=== PATIENT | male | born 1955 | race Caucasian/White ===

== ENCOUNTER 2016-09-05 14:32 | Emergency (ER) | payer OTHER ==
[~2016-09-05] VITALS: Ht 180.3 cm; Wt 125.0 kg
[~2016-09-05 14:32] MED LIST: AMLO5TAB2 PO; CALC600T25; CHLO25TA2 PO; CIAL5TAB PO; CLON0.2T PO; D 10CHW; DICL1GEL7 TOPICAL; EDAR80TA PO; FENT1SUB2; GABA300C5 PO; HYDR50TA15 PO; IBUP800T23 PO; LANTINJ SQ; LETR2.5T PO; LUPR3.75 IM; MEDI220T PO; METF1000 PO; METO100T PO; NOVOINJ3 SQ; ONDA4TAB7 SL; OXYC1TAB63 PO; POTA99TA; ROSU20 PO; TETA1INJ6 IM; TIZA2CAP3 PO; TRAM50TA PO; TRIAM.1%T TOPICAL; VICT18IN SQ; ZOME4INJ IV
[2016-09-05 14:33] VITALS: BP 161/85; PULSE 110; RESP 16; TEMP 101.4; O2SAT 94
[2016-09-05 14:55] VITALS: BP 173/83; PULSE 107; RESP 18; TEMP 101.8; O2SAT 95
[2016-09-05 15:00] VITALS: O2SAT 100
[2016-09-05] MEDS ORDERED: SODIUM CHLOR 0.9% 1000 ML INJ 1,000 ML IV ONE (15:00)
[2016-09-05] MEDS ORDERED: KETOROLAC TROMETHAMINE 30 MG/ML (IVP) VIAL IV PUSH ONE (15:00)
[2016-09-05] MEDS ORDERED: ACETAMINOPHEN 325 MG TAB PO ONE (15:00)
[2016-09-05] MEDS ORDERED: SODIUM CHLORIDE 0.9% FLUSH 10 ML FLUSH IVF PRN (15:00)
--- NOTE | 2016-09-05 15:35 | RADHPO ---
EXAM DATE/TIME: 09/05/2016 15:11 [facility] COMPARISON: No previous studies available for comparison. INDICATIONS : Fever. MEDICAL HISTORY : Carcinoma, breast. SURGICAL HISTORY : Mastectomy, right. [place]ort ENCOUNTER: Initial ACUITY: 4 - 6 days PAIN SCORE: 4/10 LOCATION: Bilateral chest FINDINGS: [id number] in good position. Lungs are clear. Heart and pulmonary vascularity normal. Portion o f bony skeleton visualized unremarkable. CONCLUSION: [id number] in good position otherwise negative. Paul Moreno MD FACR on September 05, 2016 at 15:28 Board Certified Radiologist. This report was verified electronically.
[2016-09-05 15:41] LABS: AUTOMATED NEUTROPHIL # 4.3 TH/MM3 (1.8-7.7); BASOPHIL # 0.1 TH/MM3 (0-0.2); BASOPHIL % 2.1 % (0.0-2.0); EOSINOPHIL % 0.2 % (0.0-4.0); HEMATOCRIT 39.4 % (39.0-51.0); LYMPHOCYTE # 0.3 TH/MM3 (1.0-4.8); MEAN CELL VOLUME 93.7 FL (80.0-100.0); MEAN CORPUSCULAR HEMOGLOBIN 31.4 PG (27.0-34.0); MEAN CORPUSCULAR HGB CONC 33.5 % (32.0-36.0); NEUT % 80.7 % (16.0-70.0); PLATELET COUNT 129 TH/MM3 (150-450); RED CELL DISTRIBUTION WIDTH 13.2 % (11.6-17.2); WHITE BLOOD COUNT 5.3 TH/MM3 (4.0-11.0)
[2016-09-05 15:44] LABS: HEMO FLAGS AUTO DIFF
--- NOTE | 2016-09-05 15:58 | PD ---
HPI Chief Complaint: GI Complaint Time Seen by Provider: 14:50 Travel History International Travel<30 days: Yes Contact w/Intl Traveler<30days: Yes Name of Country Traveled to: [facility] Traveled to known affect area: No History of Present Illness HPI Patient is a 61-year-old male presents the emergency department with complaint of fever, nausea and vomiting. Patient just returned from a cruise to the [facility]. States that while on the cruise he became ill with body aches, fevers and chills, nausea and vomiting. His symptoms have not gotten any better since being home prompting ER visit. He states that the cough is primarily nonproductive, occasionally clears phlegm but no hemoptysis. He has nausea and vomiting but no hematemesis or abdominal pain. No diarrhea. In fact patient has chronic constipation due to opioid usage. Unclear whether he had any sick contacts, but certainly did have travel as above. PFSH Past Medical History Hx Anticoagulant Therapy: No Cancer: Yes (BREAST CA WITH METS TO BONE) Cardiovascular Problems: Yes (htn on meds) Diabetes: Yes Patient Takes Glucophage: Yes Respiratory: Yes (cpap) Tetanus Vaccination: < 5 Years Influenza Vaccination: No Past Surgical History Surgical History: No Previous Surgery Social History Alcohol Use: Yes Tobacco Use: No Substance Use: No Allergies-Medications (Allergen,Severity, Reaction): Coded Allergies: No Known Allergies (Unverified , 09/05/16) Reported Meds & Prescriptions Reported Meds & Active Scripts Active Ondansetron Odt 4 Mg Tab 4 Mg SL Q6HR PRN Metformin (Metformin HCl) 1,000 Mg Tab 1,000 Mg PO BIDPC With meals Amlodipine (Amlodipine Besylate) 5 Mg Tab 5 Mg PO DAILY Cialis (Tadalafil) 5 Mg Tab 5 Mg PO DAILY Do not exceed 1 dose/day. Reported Tizanidine (Tizanidine HCl) 2 Mg Cap 2 Mg PO TID Crestor (Rosuvastatin Calcium) 20 Mg Tab 20 Mg PO DAILY Lupron Depot Inj Kit (Leuprolide Acetate) 3.75 Mg Kit 3.75 Mg IM MONTHLY Zometa Inj (Zoledronic Acid) 4 Mg/100 Ml Inj 4 Mg IV [id number] Abstral (Fentanyl Citrate) 200 Mcg Tab Oxycodone-Acetaminophen 5-325 mg Tab 1 Tab PO Q6H PRN Tramadol (Tramadol HCl) 50 Mg Tab 100 Mg PO Q4H PRN Potassium 99 Mg Tab 595 Naproxen Sodium 220 Mg Tab 220 Mg PO BID PRN Metoprolol Tartrate 100 Mg Tab 100 Mg PO BID Victoza Inj (Liraglutide Inj) 18 Mg/3 Ml Pen 1.8 Mg SQ DAILY Letrozole 2.5 Mg Tab 2.5 Mg Lantus Solostar Pen Inj (Insulin Glargine) 300 Unit/3 Ml Pen 45 Units SQ BID Novolog Flexpen Inj (Insulin Aspart) 300 Unit/3 Ml Pen 1 Units SQ Ibuprofen 800 Mg Tab 800 Mg PO Q8H PRN Hydralazine (Hydralazine HCl) 50 Mg Tab 50 Mg PO BID Take with a meal Gabapentin 300 Mg Cap 300 Mg PO TID Diclofenac Topical 1% Gel 1 Applic TOPICAL QID Clonidine (Clonidine HCl) 0.2 Mg Tab 0.2 Mg PO BID D 1000 (Cholecalciferol) 1,000 Unit Chew 1,000 Chlorthalidone 25 Mg Tab 25 Mg PO DAILY Calcium (Calcium Carbonate) 600 Mg Tab 600 Edarbi (Azilsartan) 80 Mg Tab 80 Mg PO DAILY Triamcinolone Topical (Triamcinolone Acetonide) 0.1 % Oint 1 Applic TOPICAL BID Review of Systems Except as stated in HPI: all other systems reviewed are Neg Physical Exam Narrative GENERAL: Well-appearing male in no acute distress SKIN: Focused skin assessment warm/dry. HEAD: Normocephalic. EYES: No scleral icterus. No injection or drainage. ENT: Mucous membranes pink and moist. Copious clear nasal discharge. NECK: Supple without nuchal rigidity CARDIOVASCULAR: Mildly tachycardic with heart rate in the 100. No murmur appreciated. RESPIRATORY: No accessory muscle use. Clear to auscultation. Breath sounds equal bilaterally. GASTROINTESTINAL: Abdomen soft, non-tender, nondistended. Obese MUSCULOSKELETAL: No obvious deformities. No edema. NEUROLOGICAL: Awake and alert. Motor grossly within normal limits. Normal speech. PSYCHIATRIC: Appropriate mood and affect; insight and judgment normal. Data Data Last Documented VS Vital Signs Date Time Temp Pulse Resp B/P Pulse Ox O2 Delivery O2 Flow Rate FiO2 09/05/16 15:00 100 Room Air 09/05/16 14:55 101.8 107 18 173/83 Orders Electrocardiogram (09/05/16 14:54) Complete Blood Count With Diff (09/05/16 14:54) Lactic Acid Sepsis Protocol (09/05/16 14:54) Influenzae A/B Antigen (09/05/16 14:54) Blood Culture (09/05/16 14:54) Chest, Single Ap (09/05/16 14:54) Ecg Monitoring (09/05/16 14:54) Iv Access Insert/Monitor (09/05/16 14:54) Oximetry (09/05/16 14:54) Acetaminophen (Tylenol) (09/05/16 15:00) Basic Metabolic Panel (Bmp) (09/05/16 14:54) Sodium Chlor 0.9% 1000 Ml Inj (Ns 1000 M (09/05/16 15:00) Ketorolac Inj (Toradol Inj) (09/05/16 15:00) Heparin Central Flush (Heparin Central F (09/05/16 15:00) Sodium Chloride 0.9% Flush (Ns Flush) (09/05/16 15:00) Heparin Central Flush (Heparin Central F (09/05/16 15:00) Ondansetron Inj (Zofran Inj) (09/05/16 16:00) Labs Laboratory Tests Test 09/05/16 15:20 White Blood Count 5.3 TH/MM3 Red Blood Count 4.20 MIL/MM3 Hemoglobin 13.2 GM/DL Hematocrit 39.4 % Mean Corpuscular Volume 93.7 FL Mean Corpuscular Hemoglobin 31.4 PG Mean Corpuscular Hemoglobin 33.5 % Concent Red Cell Distribution Width 13.2 % Platelet Count 129 TH/MM3 Mean Platelet Volume 8.1 FL Neutrophils (%) (Auto) 80.7 % Lymphocytes (%) (Auto) 5.0 % Monocytes (%) (Auto) 12.0 % Eosinophils (%) (Auto) 0.2 % Basophils (%) (Auto) 2.1 % Neutrophils # (Auto) 4.3 TH/MM3 Lymphocytes # (Auto) 0.3 TH/MM3 Monocytes # (Auto) 0.6 TH/MM3 Eosinophils # (Auto) 0.0 TH/MM3 Basophils # (Auto) 0.1 TH/MM3 CBC Comment AUTO DIFF MDM Medical Decision Making Medical Screen Exam Complete: Yes Emergency Medical Condition: Yes Medical Record Reviewed: Yes Differential Diagnosis 61-year-old male here with complaint of flulike symptoms, subjective fevers and chills, nausea vomiting, cough and chest congestion area differential includes influenza, viral syndrome, pneumonia, pancreatitis or hepatobiliary pathology, dehydration, electrolyte abnormality. Narrative Course Patient placed on monitor, port accessed and blood obtained. Twelve-lead EKG shows sinus tachycardia, rate [address] abnormalities and normal intervals. Patient given IV fluids, Tylenol, Toradol and Zofran. Portable chest x-ray obtained that by my read shows no acute abnormalities. Influenza test was positive. Patient is outside the window for treatment. CBC, BMP, lactate, blood cultures were obtained and are pending at the time this dictation. Patient signed out to oncoming provider waiting results of same for hopeful disposition home. Diagnosis Primary Impression: Influenza A Additional Impression: Vomiting Qualified Code: R11.10 - Vomiting, intractability of vomiting not specified, presence of nausea not specified, unspecified vomiting type Mylene Hatch MD Sep 05, 2016 15:58
[2016-09-05] MEDS ORDERED: ONDANSETRON HCL 4 MG/2 ML VIAL IV PUSH ONE (16:00)
[2016-09-05 16:05] LABS: POTASSIUM 3.5 MEQ/L (3.5-5.1)
[2016-09-05 16:11] LABS: BICARBONATE 26.5 MEQ/L (21.0-32.0)
[2016-09-05 16:24] LABS: PLATELET ESTIMATE SMEAR LOW (NORMAL); PLATELET MORPHOLOGY NORMAL (NORMAL); SCAN/DIFF AUTO DIFF CONFIRMED
[2016-09-05 16:27] VITALS: BP 163/74; PULSE 94; RESP 18; O2SAT 95
[2016-09-05] MEDS ORDERED: ZOFR4TAB3 SL (16:36)
[2016-09-05 16:41] VITALS: TEMP 100.4
--- NOTE | 2016-09-07 21:34 | EKG ---
Date Performed: 09/05/2016 Time Performed: 15:09:44 PTAGE: 61 years EKG: Sinus tachycardia Possible left anterior fascicular block Possible septal infarct - age und etermined Abnormal ECG NO PREVIOUS TRACING DOCTOR: Jamar Bansal Interpretating Date/Time 09/07/2016 21:30:46
== END 2016-09-05 17:02 | disposition home or self-care (01) ==
LOC: PHED 14:32
DX: J09.X9 Influenza due to identified novel influenza A virus with other manifestations (principal); E11.9 Type 2 diabetes mellitus without complications; Z79.4 Long term (current) use of insulin
CPT/HCPCS: 71010; 80048; 83605; 85025; 87040; 87804; 93005; 96361; 96374; 96375; 99284; J1642; J1885; J2405; J7030

== ENCOUNTER 2017-02-23 18:05 | Emergency (ER) | payer OTHER ==
[~2017-02-23] VITALS: Ht 177.8 cm; Wt 117.0 kg
[~2017-02-23 18:05] MED LIST changes: -CALC600T25; -CIAL5TAB PO; -D 10CHW; -FENT1SUB2; +HYDR-3799 PO; -HYDR50TA15 PO; -IBUP800T23 PO; -LANTINJ SQ; -MEDI220T PO; -ONDA4TAB7 SL; -POTA99TA; -TETA1INJ6 IM; -TRAM50TA PO; -TRIAM.1%T TOPICAL; +ZOFR4TAB3 SL
[2017-02-23 18:06] VITALS: BP 158/80; PULSE 88; RESP 24; TEMP 97.7; O2SAT 98
[2017-02-23] MEDS ORDERED: ONDANSETRON ODT 4 MG TAB PO ONE (19:45)
[2017-02-23] MEDS ORDERED: HYDROmorphone HCL PF 1 MG/ML VIAL IM ONE (19:45)
--- NOTE | 2017-02-23 19:46 | PD ---
HPI Chief Complaint: Musculoskeletal Complaint Time Seen by Provider: 19:32 Travel History International Travel<30 days: No Contact w/Intl Traveler<30days: No Traveled to known affect area: No History of Present Illness HPI 61-year-old white male right-hand dominant presents emergency department with complaints of right shoulder pain. 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 The medial after he had been not been able to raise his arm out laterally or out in front of them. He denies any numbness or tingling. No pain in his elbow, wrist or hand. Patient states that he has a history of metastatic breast cancer with metastases to the bone and is currently in remission. He is followed by Dr. Rodriguez. [facility] Past Medical History Narrative Medical Metastatic breast cancer with metastases to the bones currently in remission, hypertension, diabetes, neuropathy, hypercholesterolemia, arthritis GERD, BPH Hx Anticoagulant Therapy: No Cancer: Yes (BREAST CA WITH METS TO BONE) Cardiovascular Problems: Yes (htn on meds) Diabetes: Yes Patient Takes Glucophage: Yes Diminished Hearing: No Hypertension: Yes Respiratory: Yes (cpap) Tetanus Vaccination: < 5 Years Past Surgical History Narrative Surgical Right mastectomy Social History Alcohol Use: Yes Tobacco Use: No Substance Use: No Allergies-Medications (Allergen,Severity, Reaction): Coded Allergies: No Known Allergies (Unverified , 02/23/17) Reported Meds & Prescriptions Reported Meds & Active Scripts Active Zofran Odt (Ondansetron Odt) 4 Mg Tab 4 Mg SL Q8HR PRN Metformin (Metformin HCl) 1,000 Mg Tab 1,000 Mg PO BIDPC With meals Amlodipine (Amlodipine Besylate) 5 Mg Tab 5 Mg PO DAILY Reported Hydralazine HCl 25 Mg Tablet 25 Mg PO BID Tizanidine (Tizanidine HCl) 2 Mg Cap 2 Mg PO TID Crestor (Rosuvastatin Calcium) 20 Mg Tab 20 Mg PO DAILY Lupron Depot Inj Kit (Leuprolide Acetate) 3.75 Mg Kit 3.75 Mg IM MONTHLY Zometa Inj (Zoledronic Acid) 4 Mg/100 Ml Inj 4 Mg IV [id number] Oxycodone-Acetaminophen 5-325 mg Tab 1 Tab PO Q6H PRN Metoprolol Tartrate 100 Mg Tab 100 Mg PO BID Victoza Inj (Liraglutide Inj) 18 Mg/3 Ml Pen 1.8 Mg SQ DAILY Letrozole 2.5 Mg Tab 2.5 Mg PO DAILY Novolog Flexpen Inj (Insulin Aspart) 300 Unit/3 Ml Pen 1 Units SQ Gabapentin 300 Mg Cap 300 Mg PO TID Diclofenac Topical 1% Gel 1 Applic TOPICAL QID Clonidine (Clonidine HCl) 0.2 Mg Tab 0.2 Mg PO BID Chlorthalidone 25 Mg Tab 25 Mg PO DAILY Edarbi (Azilsartan) 80 Mg Tab 80 Mg PO DAILY Review of Systems Except as stated in HPI: all other systems reviewed are Neg Physical Exam Narrative GENERAL: Well-developed, well-nourished in no acute distress. Nontoxic appearing. HEAD: Normocephalic, atraumatic. EYES: Pupils equal round and reactive. Extraocular motions intact. No scleral icterus. No injection or drainage. ENT: TMs clear without erythema. The external auditory canals clear. Nose: clear . Posterior pharynx is pink and moist. No tonsillar edema or exudate. Uvula midline. Airway patent. NECK: Trachea midline.Supple, nontender, moves head freely. No central bony tenderness or spasm. CARDIOVASCULAR: Regular rate and rhythm without murmurs, gallops, or rubs. RESPIRATORY: Clear to auscultation. Breath sounds equal bilaterally. No wheezes , rales, or rhonchi. GASTROINTESTINAL: Abdomen soft, non-tender, nondistended. No hepato-splenomegaly , or palpable masses. No guarding. EXTREMITIES: No clubbing, cyanosis, or edema. Examination of the right upper extremity reveals pain in the glenohumeral joint. No joint effusion. He has significant decreased range of motion. He has positive drop test. No pain in the clavicle, elbow, wrist or hand. He has intact median/ulnar/renal nerves. Good pulses. The left upper extremity as well as lower extremity is without localizing bony tenderness or deformity. BACK: Nontender without deformity or crepitance. No flank tenderness. Data Data Last Documented VS Vital Signs Date Time Temp Pulse Resp B/P (MAP) Pulse Ox O2 Delivery O2 Flow Rate FiO2 02/23/17 18:06 97.7 88 24 158/80 (106) 98 Room Air Orders Orders Hydromorphone Pf Inj (Dilaudid Pf Inj) (02/23/17 19:45) Ondansetron Odt (Zofran Odt) (02/23/17 19:45) Shoulder, Complete (>2vws) (02/23/17 19:38) Ice/Cold Pack (02/23/17 19:38) Splint Or Brace Apply/Monitor (02/23/17 19:38) MDM Medical Decision Making Medical Screen Exam Complete: Yes Emergency Medical Condition: Yes Medical Record Reviewed: Yes Interpretation(s) Right shoulder: Negative for acute fracture. Differential Diagnosis MDM: High Differential diagnoses: Fracture, sprain, strain, dislocation, contusion, neurovascular injury Narrative Course Patient's history and exam is concerning for rotator cuff tear. X-ray of the right shoulder is negative for acute bony injury. Patient is given a ice pack, sling. He is encouraged to follow-up with his doctor for recheck and MRI of the shoulder. Diagnosis Primary Impression: Injury of right rotator cuff Qualified Codes: S46.001A - Unspecified injury of muscle(s) and tendon(s) of the rotator cuff of right shoulder, initial encounter Patient Instructions: Narcotic given in the ED, General Instructions Additional Instructions: Rest. Sling. Ice pack for the next 2-3 days. Continue to take your oxycodone at home for pain. Contact your doctor in the morning to schedule a follow-up exam and possible MRI of the shoulder. Return to the ER for emergencies. Med/Other Pt SpecificInfo: Prescription(s) given Disposition: 01 DISCHARGE HOME Condition: Stable José Raman Feb 23, 2017 19:46
--- NOTE | 2017-02-23 20:21 | RADRPT ---
EXAM DATE/TIME: 02/23/2017 19:56 [facility] COMPARISON: No previous studies available for comparison. INDICATIONS : Right shoulder pain after picking up logs. MEDICAL HISTORY : Right arm pit lymph node removal. SURGICAL HISTORY : None. ENCOUNTER: Initial ACUITY: 1 day PAIN SCORE: 10/10 LOCATION: Right posterior shoulder. FINDINGS: Degenerative changes are noted involving the right acromioclavicular and glenohumeral joints. There is no acute fracture or dislocation of the right shoulder. Right axillary node dissection is noted. CONCLUSION: 1. No acute fracture or dislocation of the right shoulder. 2. Degenerative changes involving the right acromioclavicular and glenohumeral joints. Thor Vieira MD on February 23, 2017 at 20:14 Board Certified Radiologist. This report was verified electronically.
[2017-03-04] MEDS ORDERED: METF1000 PO (09:16)
[2017-03-04] MEDS ORDERED: METO100T PO (09:16)
== END 2017-02-23 20:46 | disposition home or self-care (01) ==
LOC: NEPD 18:05
DX: S46.001A Unspecified injury of muscle(s) and tendon(s) of the rotator cuff of right shoulder, initial encounter (principal); I10 Essential (primary) hypertension; E11.9 Type 2 diabetes mellitus without complications; Z79.84 Long term (current) use of oral hypoglycemic drugs; Z85.3 Personal history of malignant neoplasm of breast; Z86.79 Personal history of other diseases of the circulatory system; Z87.09 Personal history of other diseases of the respiratory system; X58.XXXA Exposure to other specified factors, initial encounter; Y92.238 Other place in hospital as the place of occurrence of the external cause; Y99.0 Civilian activity done for income or pay
CPT/HCPCS: 73030; 96372; 99284; J1170

== ENCOUNTER → 2017-06-23 | Outpatient (CLI) | payer OTHER ==
[2017-06-23 09:32] LABS: AUTOMATED NEUTROPHIL # 3.2 TH/MM3 (1.8-7.7); BASOPHIL # 0.1 TH/MM3 (0-0.2); BASOPHIL % 1.5 % (0.0-2.0); EOSINOPHIL # 0.2 TH/MM3 (0-0.4); EOSINOPHIL % 3.5 % (0.0-4.0); HEMATOCRIT 38.6 % (39.0-51.0); HEMO FLAGS DIFF FINAL; HEMOGLOBIN 13.4 GM/DL (13.0-17.0); LYMPH % 32.7 % (9.0-44.0); MEAN CELL VOLUME 93.6 FL (80.0-100.0); MEAN CORPUSCULAR HEMOGLOBIN 32.4 PG (27.0-34.0); MEAN CORPUSCULAR HGB CONC 34.6 % (32.0-36.0); MEAN PLATELET VOLUME 9.1 FL (7.0-11.0); MONOCYTE # 0.5 TH/MM3 (0-0.9); NEUT % 53.3 % (16.0-70.0); PLATELET COUNT 141 TH/MM3 (150-450); RED BLOOD COUNT 4.13 MIL/MM3 (4.50-5.90); RED CELL DISTRIBUTION WIDTH 13.6 % (11.6-17.2)
[2017-06-23 09:37] LABS: APTT (PATIENT) 26.8 SEC (24.3-30.1)
[2017-06-23 09:53] LABS: ANION GAP 7 MEQ/L (5-15); BICARBONATE 30.2 MEQ/L (21.0-32.0); BLOOD UREA NITROGEN 19 MG/DL (7-18); CALCIUM 8.9 MG/DL (8.5-10.1); CHLORIDE 104 MEQ/L (98-107); GLOMERULAR FILTRATION RATE 85 ML/MIN (>89); GLUCOSE,FASTING 125 MG/DL (74-99); POTASSIUM 3.2 MEQ/L (3.5-5.1); SODIUM (NA) 141 MEQ/L (136-145)
[2017-06-23 10:45] LABS: MRSA PCR NEGATIVE (NEGATIVE); STAPH AUREUS PCR NEGATIVE (NEGATIVE)
== END ==
LOC: CPRE 08:10
DX: Z01.812 Encounter for preprocedural laboratory examination (principal); Z01.811 Encounter for preprocedural respiratory examination; Z01.810 Encounter for preprocedural cardiovascular examination; M50.00 Cervical disc disorder with myelopathy, unspecified cervical region; I10 Essential (primary) hypertension; E11.9 Type 2 diabetes mellitus without complications; E78.5 Hyperlipidemia, unspecified; G62.9 Polyneuropathy, unspecified; Z85.3 Personal history of malignant neoplasm of breast
CPT/HCPCS: 36415; 71046; 80048; 85025; 85610; 85730; 87640; 87641; 93005

== ENCOUNTER 2017-06-30 06:12 | Observation (INO) | payer OTHER ==
[~2017-06-30] VITALS: Ht 179.1 cm; Wt 120.6 kg
[~2017-06-30 06:12] MED LIST changes: +OXYC1TAB36 PO; -OXYC1TAB63 PO; +PANT40TA3 PO
[2017-06-30] MEDS ORDERED: SODIUM CHLORID 0.9% 500 ML IV PRN (06:45)
[2017-06-30] MEDS ORDERED: METOPROLOL TARTRATE 25 MG TAB PO PRN (06:45)
[2017-06-30] MEDS ORDERED: ceFAZolin 2 GM PREMIX 50 ML IV SCH (06:45)
[2017-06-30] MEDS ORDERED: CHLORHEXIDINE GLUCONATE 2 % 1 PACK (2 CLOTHS) TOPICAL PRN (06:45)
[2017-06-30] MEDS ORDERED: POVIDONE IODINE 5% (ANTISEPSIS KIT) 4 APPLICATIONS EACH NARE PRN (06:45)
[2017-06-30] MEDS ORDERED: LACTATED RINGER'S 1000 ML IV PRN (06:45)
[2017-06-30] MEDS ORDERED: EZET10 PO (06:58)
[2017-06-30] MEDS ORDERED: CANA300T PO (06:58)
[2017-06-30] MEDS ORDERED: TAMS0.4C4 PO (06:58)
[2017-06-30] MEDS ORDERED: POTA-163 PO (06:58)
[2017-06-30] MEDS ORDERED: ACETAMINOPHEN 1000 MG/100 ML 100 ML IV ONE (08:59)
[2017-06-30] MEDS ORDERED: PROPOFOL 500 MG/50 ML INJ 100 ML ONE (08:59)
[2017-06-30] MEDS ORDERED: GENTAMICIN SULFATE 80 MG/2 ML VIAL ONE (09:00)
[2017-06-30] MEDS ORDERED: GELFOAM SIZE 100 ONE (09:00)
[2017-06-30] MEDS ORDERED: LIDOCAINE 2%/EPINEPHrine PF 1:200,000 20ML SDV ONE (09:01)
[2017-06-30] MEDS ORDERED: THROMBIN (TOPICAL) 5,000 UNIT VIAL ONE (09:01)
[2017-06-30] MEDS ORDERED: MIDAZOLAM HCL 2 MG/2 ML VIAL ONE (09:14)
[2017-06-30] MEDS ORDERED: FAMOTIDINE 20 MG/2 ML VIAL ONE (09:14)
[2017-06-30] MEDS ORDERED: PROPOFOL 500 MG/50 ML INJ 200 ML ONE (11:02)
[2017-06-30] MEDS ORDERED: HYDROmorphone HCL PF 2 MG/ML VIAL ONE (11:03)
[2017-06-30] MEDS ORDERED: DEXAMETHASONE SOD PHOS 4 MG/ML VIAL IV ONE (12:00)
[2017-06-30] MEDS ORDERED: LACTATED RINGER'S 1000 ML INJ 1,000 ML IV ONE (12:00)
[2017-06-30] MEDS ORDERED: ROCURONIUM INJ 50 MG/5 ML SYRINGE IV PUSH ONE (12:00)
[2017-06-30] MEDS ORDERED: LIDOCAINE HCL 1% PF 5 ML SYRINGE OTHER ONE (12:00)
[2017-06-30] MEDS ORDERED: ONDANSETRON HCL 4 MG/2 ML VIAL IV ONE (12:00)
[2017-06-30] MEDS ORDERED: NORMOSOL R INJ 1,000 ML IV ONE (12:00)
[2017-06-30] MEDS ORDERED: GLYCOPYRROLATE 1 MG/5 ML SYRINGE IV PUSH ONE (12:00)
[2017-06-30] MEDS ORDERED: PROPOFOL 200 MG/20 ML AMP IV ONE (12:00)
[2017-06-30] MEDS ORDERED: NEOSTIGMINE 5 MG/5 ML SYRINGE IV PUSH ONE (12:00)
[2017-06-30] MEDS ORDERED: DO NOT ADM ANY ANTICOAGULANT DRUGS PRN (13:28)
[2017-06-30] MEDS ORDERED: GLUCAGON 1 MG/ML VIAL OTHER PRN ×2 (13:45→15:00)
[2017-06-30] MEDS ORDERED: DEXTROSE 50% IN WATER 50 ML VIAL(D50) IV PUSH PRN ×2 (13:45→15:00)
--- NOTE | 2017-06-30 13:51 | PD.OP ---
Operative Report Date of Surgery: Jun 30, 2017 Preoperative Diagnosis: (1) HNP (herniated nucleus pulposus), cervical (2) Cervical disc disease with myelopathy C4-5 herniated nucleus pulposis with severe spinal cord compression Cervical myelopathy Postoperative Diagnosis: (1) HNP (herniated nucleus pulposus), cervical (2) Cervical disc disease with myelopathy C4-5 herniated nucleus pulposis with severe spinal cord compression Cervical myelopathy Procedure: 1. C4-5 anterior cervical discectomy, resection sequestered herniated nucleus pulposis 2. C4 5 artificial disc placement ( Mobi- C) Anesthesia: Gen. Surgeon: Wilton Rizvi Gaming Pit Boss(s): Chiquita Fairbanks Operation and Findings: Findings: Very large sequestered disc herniation with fragments posterior to the annulus and also posterior to the posterior longitudinal ligament with significant adhesion to the thecal sac. Procedure in detail: The patient was brought into the operating room and positioned in supine position on the 3080 table with the head and neck in neutral position. Servin catheter was placed. Lines were established by Anesthesia. Gen. endotracheal anesthesia was induced without difficulty, taking care not to significantly flex or extend the patient's neck during intubation and positioning. Leads for intraoperative neuro monitoring were placed and a baseline study obtained. All extremities were appropriately padded. The neck and upper chest were shaved with clippers and sterilely prepped and draped. Appropriate timeout procedure was performed with all personnel present and in agreement 1% Xylocaine with epinephrine was used for local infiltration over the incision site which was made transversely at the left C4-5 level and carried sharply down through the platysma muscle. The exposure was continued medial to the sternocleidomastoid muscle and carotid artery, and lateral to the trachea and esophagus. The prevertebral fascia was elevated away from the anterior longitudinal ligament with a Kitner sponge. The longus coli muscle on each side was elevated with the Merritt elevator. The self-retaining retractor was placed with the blades beneath the longus coli muscle on each side. The appropriate levels were confirmed with intraoperative C-arm and preoperative imaging studies. The microscope was brought into place and used for the remainder of the procedure including the closure. The 14 mm distraction pins were used as needed for gentle distraction during the procedure. The procedure was performed at the C4-5 level. The anterior osteophyte was resected with the Leksell rongeur. The disc and annulus was incised with a 15 blade knife and discectomy performed with pituitary biopsy forceps and straight and angled curettes. The endplates were thoroughly cleaned with a curette. The TPS drill with the 4 mm barrel bur was used to remove the posterior margin of the vertebral body to remove any osteophytes and allow adequate access to the anterior spinal canal. The thin ligament dissector was used to free up the posterior annulus and ligament from the vertebral body margin. The remainder of the resection of the posterior annulus and ligament as well as the posterior osteophyte and bilateral uncovertebral joint as needed was performed with the 2 and 3 mm thin footplate Kerrison rongeurs. A large herniated nucleus pulposus was encountered posterior to the annulus with a further tear in the posterior longitudinal ligament with additional large fragments of herniated disc material directly on the dura. The fragments of herniated disc were freed up with the thin ligament dissector and the micro- blunt nerve hook and lifted away from the thecal sac and removed. The appropriate size Mobi- C implant was then chosen using the trial. The 15 mm wide by 6 mm high implant was chosen. Using anatomic landmarks, and AP and lateral C-arm imaging, the appropriate size Mobi- C then placed with a good fit of the implant. The blunt nerve hook was used to probe beneath the implant to ensure that there was no impingement on the thecal sac or exiting nerve roots. The entire construct was checked with intraoperative C-arm and felt to be satisfactory. The 10 Estonian drain was brought out through a small incision in the left lower neck and secured to the skin with nylon suture and attached to sterile suction. The closure was performed with 3-0 Vicryl running for the platysma and interrupted for the subcutaneous closure, with 4-0 Vicryl running for the subcuticular closure. A dressing of sterile Mastisol, Steri-Strips, and Primapore dressing was placed. The patient was taken to recovery room in stable condition. All counts were correct at the end of the case. Estimated blood loss was 30 cc No specimen was sent to pathology. Intraoperative neuro monitoring remained stable during the procedure. Wilton Rizvi MD Jun 30, 2017 13:51
--- NOTE | 2017-06-30 14:11 | RADRPT ---
EXAM DATE/TIME: 06/30/2017 09:56 [facility] COMPARISON: No previous studies available for comparison. INDICATIONS : Post-op C4-C5 artificial disk placement. MEDICAL HISTORY : None. SURGICAL HISTORY : None. ENCOUNTER: Initial ACUITY: 1 day PAIN SCORE: Non-responsive. LOCATION: neck FINDINGS: 2 fluoroscopic images of the cervical spine. There is a well-positioned disc prosthesis at C4-5. Visu alized osseous structures are intact without acute fracture. The visualized sagittal alignment is morgan ntained. Patient is intubated with left IJ central line. CONCLUSION: 1. Disc prosthesis at C4-5, as above. Julio Cesar Rene MD on June 30, 2017 at 14:08 Board Certified Radiologist. This report was verified electronically.
[2017-06-30 14:50] LABS: BICARBONATE 18.5 MEQ/L (21.0-32.0); CALCIUM 8.3 MG/DL (8.5-10.1); CREATININE 0.9 MG/DL (0.60-1.30)
[2017-06-30] MEDS ORDERED: MORPHINE SULFATE 2 MG/ML INJ IV PUSH PRN (15:00)
[2017-06-30] MEDS ORDERED: oxyCODONE/ACETAMINOPHEN 5 MG/325 MG TAB PO PRN (15:00)
[2017-06-30] MEDS: 1/2 NS + KCL 20 MEQ INJ 1,000 ML IV SCH ×2 (15:00→16:16)
[2017-06-30] MEDS ORDERED: NALOXONE HCL 0.4 MG/ML AMP IV PUSH PRN (15:00)
[2017-06-30] MEDS ORDERED: INSULIN ASPART 1,000 UNITS/10 ML VIAL SQ ONE (15:08)
[2017-06-30 15:30] VITALS: BP 142/79; PULSE 81; RESP 18; TEMP 96.9; O2SAT 95
[2017-06-30] MEDS: INSULIN ASPART SUPPLEMENTAL SCALE SQ SCH ×2 (17:00→21:00)
[2017-06-30] MEDS: GABAPENTIN 300 MG CAP PO SCH (17:05)
[2017-06-30] MEDS: metFORMIN HCL 500 MG TAB PO SCH (17:05)
[2017-06-30] MEDS: oxyCODONE/ACETAMINOPHEN 10 MG/325 MG TAB PO PRN (18:07)
[2017-06-30] MEDS ORDERED: PILL SPLITTER OTHER PRN (19:00)
[2017-06-30] MEDS ORDERED: LEUPROLIDE 3.75 MG IM PRN (19:00)
[2017-06-30] MEDS ORDERED: ZOLEDRONIC ACID 4 MG IV PRN (19:15)
[2017-06-30 20:05] VITALS: O2SAT 96
[2017-06-30 20:35] VITALS: BP 135/83; PULSE 91; RESP 17; TEMP 99.3; O2SAT 94
[2017-06-30] MEDS: hydrALAZINE HCL 25 MG TAB PO SCH (20:41)
[2017-06-30] MEDS: cloNIDine HCL 0.2 MG TAB PO SCH (20:41)
[2017-06-30] MEDS: METOPROLOL TARTRATE 100 MG TAB PO SCH (20:42)
[2017-06-30] MEDS ORDERED: DICLOFENAC TOPICAL SCH (21:00)
[2017-06-30] MEDS ORDERED: TAMSULOSIN HCL 0.4 MG CAP PO SCH (21:00)
[2017-06-30] MEDS ORDERED: PANTOPRAZOLE SOD 40 MG DELAYED RELEASE TAB PO SCH (21:00)
[2017-07-01 00:40] VITALS: BP 126/75; PULSE 76; RESP 18; TEMP 98.2; O2SAT 93
[2017-07-01 03:00] VITALS: BP 134/73; PULSE 74; RESP 18; TEMP 97.9; O2SAT 94
[2017-07-01 05:30] LABS: AUTOMATED NEUTROPHIL # 6.6 TH/MM3 (1.8-7.7); BASOPHIL % 0.4 % (0.0-2.0); EOSINOPHIL % 0.5 % (0.0-4.0); HEMATOCRIT 39.5 % (39.0-51.0); HEMOGLOBIN 13.6 GM/DL (13.0-17.0); LYMPH % 13.4 % (9.0-44.0); LYMPHOCYTE # 1.2 TH/MM3 (1.0-4.8); MEAN CELL VOLUME 93.4 FL (80.0-100.0); MEAN CORPUSCULAR HEMOGLOBIN 32.1 PG (27.0-34.0); MEAN CORPUSCULAR HGB CONC 34.4 % (32.0-36.0); MEAN PLATELET VOLUME 8.8 FL (7.0-11.0); MONO % 11.2 % (0.0-8.0); NEUT % 74.5 % (16.0-70.0); PLATELET COUNT 141 TH/MM3 (150-450); RED BLOOD COUNT 4.23 MIL/MM3 (4.50-5.90); WHITE BLOOD COUNT 8.9 TH/MM3 (4.0-11.0)
[2017-07-01 05:55] LABS: BICARBONATE 28.6 MEQ/L (21.0-32.0); CALCIUM 8.6 MG/DL (8.5-10.1); CREATININE 0.85 MG/DL (0.60-1.30)
[2017-07-01] MEDS: oxyCODONE/ACETAMINOPHEN 10 MG/325 MG TAB PO PRN (07:34)
[2017-07-01 08:00] VITALS: BP 142/77; PULSE 72; RESP 16; TEMP 96.7; O2SAT 96
[2017-07-01 08:19] VITALS: O2SAT 93
[2017-07-01] MEDS: hydrALAZINE HCL 25 MG TAB PO SCH (08:19)
[2017-07-01] MEDS: metFORMIN HCL 500 MG TAB PO SCH (08:20)
[2017-07-01] MEDS: METOPROLOL TARTRATE 100 MG TAB PO SCH (08:20)
[2017-07-01] MEDS: GABAPENTIN 300 MG CAP PO SCH ×2 (08:20→13:02)
[2017-07-01] MEDS: cloNIDine HCL 0.2 MG TAB PO SCH (08:20)
[2017-07-01] MEDS ORDERED: PRED10 PO (08:25)
[2017-07-01] MEDS ORDERED: PRED5TAB PO (08:27)
[2017-07-01] MEDS ORDERED: PRED2.5T PO (08:27)
[2017-07-01] MEDS ORDERED: amLODIPine BESYLATE 5 MG TAB PO SCH (09:00)
[2017-07-01] MEDS ORDERED: LIRAGLUTIDE 1.8 MG SQ SCH (09:00)
[2017-07-01] MEDS ORDERED: POTASSIUM CHLORIDE 20 MEQ CONTROLLED RELEASE TAB PO SCH (09:00)
[2017-07-01] MEDS ORDERED: EZETIMIBE 10 MG TAB PO SCH (09:00)
[2017-07-01] MEDS ORDERED: Letrozole 2.5 MG PO SCH (09:00)
[2017-07-01] MEDS ORDERED: CHLORTHALIDONE 50 MG TAB PO SCH (09:00)
[2017-07-01] MEDS ORDERED: OXYC1TAB36 PO (09:24)
[2017-07-01] MEDS: INSULIN ASPART SUPPLEMENTAL SCALE SQ SCH ×2 (09:54→13:02)
[2017-07-01] MEDS: 1/2 NS + KCL 20 MEQ INJ 1,000 ML IV SCH (11:30)
[2017-07-01 12:00] VITALS: BP 121/72; PULSE 66; RESP 16; TEMP 96.8; O2SAT 96
--- NOTE | 2017-07-01 14:16 | HHI.DCPOC ---
Discharge Care Plan Diagnosis: (1) Cervical disc disease with myelopathy Your Health Problems Are: Incision/Drains Loss of Movements Goals to Promote Your Health * To prevent worsening of your condition and complications * To maintain your health at the optimal level Wear the cervical collar at all times. It may briefly be taken off for personal hygiene. No lifting, bending, pushing, pulling or other strenuous activity. Leave the dressing on over the surgical incisions for 1 week. After that you may take the outer dressing off but leave the steri-strips on. If the steri- strips do not fall off by day 10 then you may gently remove them. No showering until the surgical incision is totally healed. Take the pain medication as prescribed. Avoid taking any medication that contains aspirin or NSAIDs (ibuprofen, naproxen , Motrin, Advil, Naprosyn) for at least a month. Follow up in the office in 2 weeks for a wound check. Directions to Meet Your Goals Take your medications as prescribed Follow your dietary instruction Follow activity as directed Wear the cervical collar at all times. It may briefly be taken off for personal hygiene. No lifting, bending, pushing, pulling or other strenuous activity. Leave the dressing on over the surgical incisions for 1 week. After that you may take the outer dressing off but leave the steri-strips on. If the steri- strips do not fall off by day 10 then you may gently remove them. No showering until the surgical incision is totally healed. Take the pain medication as prescribed. Avoid taking any medication that contains aspirin or NSAIDs (ibuprofen, naproxen , Motrin, Advil, Naprosyn) for at least a month. Follow up in the office in 2 weeks for a wound check. Keep your appointments as scheduled Take your immunizations and boosters as scheduled If your symptoms worsen call your PCP, if no PCP go to Urgent Care Center or Emergency Room Smoking is Dangerous to Your Health. Avoid second hand smoke Call the 24-hour hour crisis hotline for domestic abuse at [facility] Antonio Hardin Jul 01, 2017 14:16 Wilton Rizvi MD Jul 04, 2017 20:22
--- NOTE | 2017-07-01 14:19 | HHI.DS ---
Jose Antonio HardinGenet BLACKP 07/01/17 1419: Discharge Summary Admission Date Jun 30, 2017 at 16:32 Discharge Date: Jul 01, 2017 Admitting Diagnosis (1) Cervical disc disease with myelopathy Diagnosis: Principal ICD Code: M50.00 - Cervical disc disorder with myelopathy, unspecified cervical region Procedures : 1. C4-5 anterior cervical discectomy, resection sequestered herniated nucleus pulposis 2. C4 5 artificial disc placement (Mobi- C) CBC/BMP: 07/01/17 0505 07/01/17 0505 Significant Findings Laboratory Tests Test 06/30/17 14:00 07/01/17 05:05 Random Glucose 257 MG/DL (74-106) 180 MG/DL (74-106) Calcium Level 8.3 MG/DL (8.5-10.1) Sodium Level 135 MEQ/L (136-145) Carbon Dioxide Level 18.5 MEQ/L (21.0-32.0) Anion Gap 17 MEQ/L (5-15) Estimat Glomerular Filtration Rate 85 ML/MIN (>89) Red Blood Count 4.23 MIL/MM3 (4.50-5.90) Platelet Count 141 TH/MM3 (150-450) Neutrophils (%) (Auto) 74.5 % (16.0-70.0) Monocytes (%) (Auto) 11.2 % (0.0-8.0) Monocytes # (Auto) 1.0 TH/MM3 (0-0.9) Hospital Course 06/30: The patient presented to [facility] to have a C4-5 anterior cervical discectomy with resection of a sequestered herniated nucleus pulposis and placement of a Mobi-C device. Post-operatively the patient was transferred to a regular med/surg floor. 07/01: The patient was evaluated by Physical Therapy this morning and it was felt that the patient was able to be safely discharged home without any skilled needs or equipment. The patient when seen this afternoon is doing well. He states that he has some pain to the left lateral cervical paraspinal region. He says that the symptoms he had to the upper extremities has resolved except for some numbness to the distal fingertips that he thinks is most likely related to diabetic neuropathy. His muscle strength is strong and sensation intact to light touch except for the fingertips. He had no other complaints. Pt Condition on Discharge: Good Discharge Disposition: Discharge Home Discharge Instructions DIET: Follow Instructions for: As Tolerated, No Restrictions ACTIVITIES You can perform: Weight Bearing As Sarahi Activities to Avoid: Lifting/Bending, Strenuous Activity, Bathing, Shower ADDITIONAL Activity Instructio: Wear the cervical collar at all times. It may briefly be taken off for personal hygiene. No lifting, bending, pushing, pulling or other strenuous activity. No showering until the surgical incision is totally healed. Additional Information Leave the dressing on over the surgical incisions for 1 week. After that you may take the outer dressing off but leave the steri-strips on. If the steri- strips do not fall off by day 10 then you may gently remove them. No showering until the surgical incision is totally healed. Take the pain medication as prescribed. Avoid taking any medication that contains aspirin or NSAIDs (ibuprofen, naproxen , Motrin, Advil, Naprosyn) for at least a month. Follow up in the office in 2 weeks for a wound check. Wilton Rizvi MD 07/04/172022: Discharge Summary CBC/BMP: 07/01/17 0505 07/01/17 0505 Jose Antonio Hardin Jul 01, 2017 14:19 Wilton Rizvi MD Jul 04, 2017 20:23
--- NOTE | 2017-07-01 14:30 | HHI.NSPN ---
(Jose Antonio Hardin) History Chief Complaint: Some pain to left posterior neck. (Jose Antonio Hardin) Interval History 06/30: The patient presented to [facility] to have a C4-5 anterior cervical discectomy with resection of a sequestered herniated nucleus pulposis and placement of a Mobi-C device. Post-operatively the patient was transferred to a regular med/surg floor. 07/01: The patient was evaluated by Physical Therapy this morning and it was felt that the patient was able to be safely discharged home without any skilled needs or equipment. The patient when seen this afternoon is doing well. He states that he has some pain to the left lateral cervical paraspinal region. He says that the symptoms he had to the upper extremities has resolved except for some numbness to the distal fingertips that he thinks is most likely related to diabetic neuropathy. His muscle strength is strong and sensation intact to light touch except for the fingertips. He had no other complaints. (Jose Antonio Hardin) Exam Results 06/29/17 06/29/17 06/30/17 06/30/17 07/01/17 07/01/17 06:00 18:00 06:00 18:00 06:00 18:00 Intake Total 1500 ml 480 ml 360 ml Output Total 30 ml 500 ml 1800 ml Balance 1470 ml -20 ml -1440 ml Intake Oral 480 ml 360 ml Other 1500 ml Output Urine Total 500 ml 1800 ml Estimated Blood Loss 30 ml # Voids 1 # Bowel Movements 0 0 Vital Signs Date Time Temp Pulse Resp B/P (MAP) Pulse Ox O2 Delivery O2 Flow Rate FiO2 07/01/17 08:19 93 21 07/01/17 08:00 96.7 72 16 142/77 (98) 96 07/01/17 03:00 97.9 74 18 134/73 (93) 94 07/01/17 00:40 98.2 76 18 126/75 (92) 93 06/30/17 20:35 99.3 91 17 135/83 (100) 94 06/30/17 20:05 96 Nasal Cannula 2.00 06/30/17 15:30 96.9 81 18 142/79 (100) 95 06/30/17 15:00 80 16 129/68 (88) 96 Nasal Cannula 2 06/30/17 14:30 76 16 130/63 (85) 95 Nasal Cannula 2 06/30/17 14:15 74 16 127/60 (82) 96 Nasal Cannula 2 06/30/17 14:00 74 16 127/60 (82) 96 Nasal Cannula 2 06/30/17 13:45 74 16 132/61 (84) 95 Nasal Cannula 2 06/30/17 13:30 72 16 123/62 (82) 96 Nasal Cannula 2 06/30/17 13:28 99.6 72 16 132/61 (84) 96 Nasal Cannula 2 06/30/17 07:01 98.5 75 20 138/76 (96) 95 (Jose Antonio Hardin) Physical Examination GENERAL: Awake & alert, readily interacts, normal affect, no apparent distress. NECK: Morgan J cervical collar in place. Midline cervical spine NTTP, moderately TTP to the left lateral mid to lower paraspinal region. Left anterior neck surgical incision minimally TTP, dressing intact, ROSALVA drain to bulb suction w/ serosanguinous drainage. HEENT: Normocephalic, atraumatic. CARDIOVASCULAR: S1S2 w/RRR w/o M/G/R. RESPIRATORY: CTAB w/o W/R/R, equal excursion, nonlaboured, on RA. GASTROINTESTINAL: Soft, nontender, positive bowel sounds. MUSCULOSKELETAL: LANDIS w/o difficulty. No evident clubbing or deformity. SKIN: Warm, dry & intact except for left anterior neck surgical incision & ROSALVA drain insertion site w/intact dressing, no evident erythema, streaking or drainage. NEUROLOGICAL: AAOx3. Speech clear & appropriate. Follows commands w/o difficulty. Sensation intact to light touch to the extremities except for the distal fingertips which is decreased. Motor strength is 5/5 to all major flexion & extension muscle groups to all extremities to include the hand intrinsics & extrinsics. (Jose Antonio Hardin) Lab, Micro, Other Results Recent Impressions Cervical Spine X-Ray 06/30/17 0000 Signed Impressions: Service Date/Time: Vanessa, June 30, 2017 09:56 - CONCLUSION: 1. Disc prosthesis at C4-5, as above. Julio Cesar Rene MD Laboratory Tests Test 06/30/17 14:00 07/01/17 05:05 Blood Urea Nitrogen 13 MG/DL 12 MG/DL Creatinine 0.90 MG/DL 0.85 MG/DL Random Glucose 257 MG/DL 180 MG/DL Calcium Level 8.3 MG/DL 8.6 MG/DL Sodium Level 135 MEQ/L 139 MEQ/L Potassium Level 3.7 MEQ/L 3.7 MEQ/L Chloride Level 100 MEQ/L 102 MEQ/L Carbon Dioxide Level 18.5 MEQ/L 28.6 MEQ/L Anion Gap 17 MEQ/L 8 MEQ/L Estimat Glomerular Filtration Rate 85 ML/MIN 91 ML/MIN White Blood Count 8.9 TH/MM3 Red Blood Count 4.23 MIL/MM3 Hemoglobin 13.6 GM/DL Hematocrit 39.5 % Mean Corpuscular Volume 93.4 FL Mean Corpuscular Hemoglobin 32.1 PG Mean Corpuscular Hemoglobin Concent 34.4 % Red Cell Distribution Width 13.0 % Platelet Count 141 TH/MM3 Mean Platelet Volume 8.8 FL Neutrophils (%) (Auto) 74.5 % Lymphocytes (%) (Auto) 13.4 % Monocytes (%) (Auto) 11.2 % Eosinophils (%) (Auto) 0.5 % Basophils (%) (Auto) 0.4 % Neutrophils # (Auto) 6.6 TH/MM3 Lymphocytes # (Auto) 1.2 TH/MM3 Monocytes # (Auto) 1.0 TH/MM3 Eosinophils # (Auto) 0.0 TH/MM3 Basophils # (Auto) 0.0 TH/MM3 CBC Comment DIFF FINAL Differential Comment (Jose Antonio Hardin) Medical Decision Making Impression and Plan Impression: (1) HNP (herniated nucleus pulposus), cervical (2) Cervical disc disease with myelopathy C4-5 herniated nucleus pulposis with severe spinal cord compression Cervical myelopathy Patient doing well with resolution of pre-surgery myelopathy. Residual numbness to fingertips which may be related to diabetic neuropathy. Reviewed labs for today. Thrombocyopenia noted. Resolution of hyponatremia. eGFR now WNL. No ROSALVA drain output recorded. Physical Therapy felt the patient was able to be discharged home safely w/o any skilled needs or equipment. POD #1 () s/p: 1. C4-5 anterior cervical discectomy, resection sequestered herniated nucleus pulposis 2. C4 5 artificial disc placement (Mobi-C) Plan: Morgan J cervical collar at all times. D/C ROSALVA drain. Will discharge patient home. (Jose Antonio Hardin) Attending Statement The exam, history, and the medical decision-making described in the above note were completed with the assistance of the mid-level provider. I reviewed and agree with the findings presented. I attest that I had a [id number] encounter with the patient on the same day, and personally performed and documented my assessment and findings in the medical record. (Wilton Rizvi MD) Jose Antonio Hardin Jul 01, 2017 14:30 Wilton Rizvi MD Jul 04, 2017 20:24
[2017-07-01] MEDS ORDERED: oxyCODONE/ACETAMINOPHEN 10 MG/325 MG TAB PO PRN (15:00)
== END 2017-07-01 17:44 | disposition home or self-care (01) ==
LOC: HSDC 06:12 → INTOOBSV 16:32 → N06B 16:32
PROVIDERS: ADMIT Neurological Surgery; ATTEND Neurological Surgery
DX: M50.021 Cervical disc disorder at C4-C5 level with myelopathy (principal); I10 Essential (primary) hypertension; E11.9 Type 2 diabetes mellitus without complications; G47.30 Sleep apnea, unspecified; Z87.891 Personal history of nicotine dependence; Z85.3 Personal history of malignant neoplasm of breast; Z79.4 Long term (current) use of insulin
CPT/HCPCS: 00600; 22856; 72040; 76000; 80048; 82948; 85025; 94150; 96372; 96374; 97161; C1889; G0378; G8987; G8988; J0131; J0690; J1100; J1170; J1580; J1815; J2250; J2270; J2405; J2710; J3010; J7120; L0150; L0172

== ENCOUNTER 2017-12-14 08:00 | Inpatient (IN) ==
[~2017-12-14 08:00] MED LIST changes: -AMLO5TAB2 PO; +Bupivacaine Liposomal PF 1.3% Inj 20 ML Vial ONE; +Bupivacaine PF 0.25% Inj 30 ML Vial ONE; -CHLO25TA2 PO; -CLON0.2T PO; -DICL1GEL7 TOPICAL; -EDAR80TA PO; -GABA300C5 PO; +Gelatin Size 100 Topical Foam ONE; -HYDR-3799 PO; -LETR2.5T PO; -LUPR3.75 IM; +Lidocaine 1%/Epinephrine 1:100,000 Inj 20 ML Vial ONE; -METF1000 PO; -METO100T PO; -NOVOINJ3 SQ; -OXYC1TAB36 PO; -PANT40TA3 PO; -ROSU20 PO; -TIZA2CAP3 PO; +Thrombin Topical Soln 5,000 UNIT Vial TOPICAL ONE; -VICT18IN SQ; -ZOFR4TAB3 SL; -ZOME4INJ IV
[2017-12-22] MEDS ORDERED: Propofol Inj 500 MG/50 ML Vial ONE ×2 (07:27→12:46)
[2017-12-22] MEDS ORDERED: Lidocaine 1%/Epinephrine 1:100,000 Inj 30 ML Vial ONE (07:35)
[2017-12-22] MEDS ORDERED: Thrombin Topical Soln 5,000 UNIT Vial TOPICAL ONE (07:35)
[2017-12-22] MEDS ORDERED: Gelatin Size 100 Topical Foam ONE (07:35)
[2017-12-22] MEDS ORDERED: Metoprolol Tartrate 25 MG Tablet PO SCH (07:45)
[2017-12-22] MEDS ORDERED: Chlorhexidine Gluconate 2% 1 Pack (2 Cloths) TOPICAL SCH (07:45)
[2017-12-22] MEDS ORDERED: Sodium Chlor 0.9% Inj 500 ML IV.SIG SCH (08:00)
[2017-12-22] MEDS ORDERED: Ketamine Inj 50 MG/5 ML Syringe IV.PUSH ONE (08:13)
[2017-12-22] MEDS ORDERED: Glycopyrrolate Inj 1 MG/5 ML Syringe IV.PUSH ONE (12:00)
[2017-12-22] MEDS ORDERED: Neostigmine Inj 5 MG/5 ML Syringe IV.PUSH ONE (12:00)
[2017-12-22] MEDS ORDERED: Phenylephrine/NS 1000 MCG/10ML Syringe IV.PUSH ONE (12:00)
[2017-12-22] MEDS ORDERED: Metoprolol Inj 5 MG/5 ML Vial IV.PUSH ONE (12:00)
[2017-12-22] MEDS ORDERED: Lidocaine PF 1% Inj 5 ML Syringe INFILTRATN ONE (12:00)
[2017-12-22] MEDS ORDERED: Labetalol HCl Inj 100 MG/20 ML Vial IV.PUSH ONE (12:00)
[2017-12-22] MEDS ORDERED: fentaNYL Citrate Inj 100 MCG/2 ML Ampul ONE ×2 (12:45→16:04)
[2017-12-22] MEDS ORDERED: ceFAZolin 2 GM Premix Inj 2 GM/50 ML PIGGYBACK IV.SIG ONE (13:17)
[2017-12-22] MEDS ORDERED: Bupivacaine Liposomal PF 1.3% Inj 20 ML Vial INFILTRATN ONE (14:14)
--- NOTE | 2017-12-22 14:53 | XR ---
EXAM DATE: 12/22/2017 2:48 PM EDT AGE/SEX: 62 years / Male INDICATIONS: Lower back pain. CLINICAL DATA: This is the patient's initial encounter. Patient reports that signs and symptoms have been present for 1 day and indicates a pain score of Nonresponsive. MEDICAL/SURGICAL HISTORY: . Carcinoma, breast. Right breast cancer 2009. 2014 Mets to bone. Mas tectomy, right. . Port placement. COMPARISON: TLI, XR SPINE LUMBAR AP AND LAT W/ FLEX AND EXT, 06/22/2017. . FINDINGS: 2 digital images of the lumbar spine reveal posterior hardware fusion at L4-5. The hardware appears w ell-positioned. Disc spacer is well positioned. Alignment is anatomic. CONCLUSION: Satisfactory operative appearance Electronically signed by: Sony Kline MD 12/22/2017 2:52 PM EDT
[2017-12-22] MEDS ORDERED: *Meperidine Inj 25 MG/ML Vial PERIprocedural Use ONLY ONE (16:12)
[2017-12-22] MEDS ORDERED: *morphine SULFATE 4 MG/ML PERIprocedure ONLY ONE ×3 (16:18→17:00)
[2017-12-22] MEDS ORDERED: Bisacodyl 10 MG Supp RECTAL PRN (17:20)
[2017-12-22] MEDS ORDERED: Naloxone Inj 0.4 MG/ML Vial IV.PUSH PRN (17:26)
[2017-12-22] MEDS ORDERED: [UNRECOGNIZED DRUG - OTHER] IV.SIG SCH (17:30)
[2017-12-22] MEDS ORDERED: LEUPROLIDE 3.75 MG IM SCH (17:30)
--- NOTE | 2017-12-22 17:34 | P.OP ---
Date of procedure: 12/22/17 Procedure: 1. Bilateral L4-5 decompressive semi-laminectomy for lumbar stenosis 2. Right L4-5 facetectomy, foraminotomy, decompression exiting right L4 nerve root. 3. L4-5 discectomy, interbody fusion,PEEK cage, lamina autograft and demineralized bone matrix 4. Bilateral L4-5 posterior instrumentation with pedicle screw fixation Surgeon: Wilton Rizvi MD Process Engineering Manager: Chiquita Fairbanks Operation and Findings: Indications: 62-year-old male with severe progressive low back pain with radiation to the primarily L5 distribution right lower extremity Findings: Significant L4-5 facet instability and foraminal stenosis on the right side. Significant increased subluxation with patient positioned prone. Procedure in detail The patient was brought to the operating room and general endotracheal anesthesia induced without difficulty Lines were established. Anesthesia Sequential compression devices were in place The patient was positioned prone on the concentric Kirby table with the side bolsters and all extremities appropriately padded Leads for intraoperative neuro monitoring were placed prior to positioning and a baseline study obtained Appropriate timeout procedure was performed with all personnel present and in agreement The lumbar region was shaved with clippers and sterilely prepped and draped Appropriate timeout procedure was performed with all personnel present and in agreement 1% Xylocaine with epinephrine was used for local infiltration over the incision site which was made approximately 5.5 cm lateral to the midline at the bilateral L4-5 level and carried sharply down to the fascia. The fascia was sharply incised and finger dissection was used to separate the normal intermuscular plane at the L4-5 level, allowing direct palpation of the junction of the and pedicle and transverse process on each side. The entry point for the pedicle screws were determined by anatomic and radiographic landmarks. Using AP and lateral C-arm imaging, the Jamshidi needle was guided through the bilateral L4 and L5 pedicle. The intraoperative C-arm imaging was used to verify appropriate Jamshidi needle placement. The wires were then placed through the Jamshidi needle cannulas, and the cannula was withdrawn. The wires were temporarily clipped away from the operative field. On the right side Bey elevator was used for subperiosteal elevation of paraspinous musculature and fascia away from the lamina and spinous processes The deep self-retaining retractor was placed The appropriate levels were verified with intraoperative C-arm The microscope was moved into place and used for the remainder of the procedure including the closure The TPS drill with a 5 mm bone bur followed by the Kerrison rongeur was used to remove the inferior two thirds of the lamina at the cephalad level of the decompression and the superior third of the lamina at the caudal level of the decompression. This was performed starting on the right side, and then working across midline towards the left. The foraminotomy was performed on each side with the 2 and 3 mm Kerrison rongeur. On the side of the cage placement, an additional portion of the medial facet was removed to allow sufficient room for placement of the cage without significant retraction of the thecal sac and exiting nerve root. Hypertrophied ligamentum flavum was elevated away from the thecal sac and exiting nerve roots with the thin ligament dissector and resected with a 15 blade knife and Kerrison rongeur. The thecal sac and exiting nerve root were freed up from surrounding adhesions with the microdissectors and gently retracted medially revealing the underlying disc and annulus. There was moderate subannular disc herniation. The annulus was incised with the 11 blade knife and discectomy performed with pituitary biopsy forceps and straight and angled curettes The endplate scrapers were used to decorticate the endplates and any remaining debris was removed with the antibiotic irrigation and suction and pituitary biopsy forceps The appropriate size PEEK cage was packed with retained lamina cancellus autograft And a small amount of demineralized bone matrix The cage was placed at the L4-5 level with a good fit of the cage. The placement was checked under the microscope and with intraoperative C-arm and felt to be satisfactory. The thecal sac and nerve roots were probed with the long blunt nerve hook and felt to be well decompressed The cannulated 5.5 mm tap was then used to prepare the pedicle screw sites on each side, with the dilators used to protect the surrounding tissue. The appropriate length Spine Wave Sniper percutaneous cannulated pedicle screw attached to the MIS extenders were placed into the bilateral L4 and L5 pedicle using the existing guidewires which were then removed. Pedicle screw placement was checked with intraoperative C-arm imaging and felt to be satisfactory. The percutaneous rods were placed across the pedicle screws on each side. The locking caps were secured with the torque wrench and anti-torque device Compression and alignment were achieved as necessary with the rods and reducers. The entire construct was checked with intraoperative C-arm and felt to be satisfactory The region was well irrigated with antibiotic irrigation The posterior lateral structures at the bilateral L4 5 levels were decorticated with the TPS drill The shavings were left in place, to which was added the remaining autograft and allograft bone which was firmly packed in place for the posterior lateral fusion. The 7 mm flat fluted drain was left in place at the operative side and brought out through a incision at the upper lumbar region and secured to the skin with nylon suture and attached to sterile suction bleeding was carefully controlled with the bipolar forceps The closure was performed with 0 Vicryl interrupted for the deep and superficial fascia, with 3-0 Vicryl for the subcutaneous closure and 4-0 Vicryl running subcuticular closure. Dressings sterile Mastisol, Steri-Strips and Primapore was placed The patient was turned into supine position and taken to recovery room in stable condition All counts were correct at the end of the case Estimated blood loss was 200 cc No specimen was sent to pathology Neuro monitoring was stable during the procedure
[2017-12-22] MEDS ORDERED: HYDROmorphone PCA Inj 6 MG/30 ML PCA.VIAL PCA ONE (17:42)
[2017-12-22] MEDS ORDERED: Dextrose 50% in Water 50 ML Vial IV.PUSH PRN (19:03)
[2017-12-22] MEDS ORDERED: Insulin Detemir Inj 1,000 UNIT/10 ML Vial SQ SCH (21:00)
[2017-12-22] MEDS: HYDROmorphone PCA Inj 6 MG/30 ML PCA.VIAL PCA PRN (21:20)
[2017-12-22] MEDS: hydrALAZINE 25 MG Tablet PO SCH (21:32)
[2017-12-22] MEDS: Senna/Docusate Sodium 8.6/50 MG Tablet PO SCH (21:33)
[2017-12-22] MEDS: Metoprolol Tartrate 100 MG Tablet PO SCH (21:35)
[2017-12-22] MEDS: Insulin Detemir Inj 1,000 UNIT/10 ML Vial SQ SCH (21:37)
[2017-12-23] MEDS: Ketorolac Inj 30 MG/ML (IVP) Vial IV.PUSH SCH ×2 (00:24→05:21)
[2017-12-23] MEDS: Gabapentin 300 MG Capsule PO SCH ×4 (08:46→18:59)
[2017-12-23] MEDS: Insulin Detemir Inj 1,000 UNIT/10 ML Vial SQ SCH ×2 (08:48→20:57)
[2017-12-23] MEDS: Senna/Docusate Sodium 8.6/50 MG Tablet PO SCH ×2 (08:50→21:04)
[2017-12-23] MEDS: Ezetimibe 10 MG Tablet PO SCH (08:52)
[2017-12-23] MEDS: predniSONE 5 MG Tablet PO SCH (08:53)
[2017-12-23] MEDS: Chlorthalidone 50 MG Tablet PO SCH (08:53)
[2017-12-23] MEDS: oxyCODONE/Acetaminophen 10/325 Tablet PO PRN ×2 (08:55→18:59)
[2017-12-23] MEDS: Metoprolol Tartrate 100 MG Tablet PO SCH ×2 (08:57→21:04)
[2017-12-23] MEDS: amLODIPine 5 MG Tablet PO SCH (08:57)
[2017-12-23] MEDS: hydrALAZINE 25 MG Tablet PO SCH ×2 (08:57→20:56)
[2017-12-23] MEDS ORDERED: PT:LETROZOLE 2.5 MG PO SCH (09:00)
[2017-12-23] MEDS ORDERED: [UNRECOGNIZED DRUG - OTHER] PO SCH (09:00)
[2017-12-23] MEDS ORDERED: DULAGLUTIDE 1.5 MG SQ SCH (09:00)
[2017-12-23] MEDS ORDERED: CHLORTHALIDONE 25 MG PO SCH (09:00)
[2017-12-23] MEDS ORDERED: AZILSARTAN MEDOXOMIL 80 MG PO SCH (09:00)
[2017-12-23] MEDS ORDERED: AZILSARTAN 80 MG PO SCH (09:00)
--- NOTE | 2017-12-23 10:29 | P.CONIM ---
History of Present Illness Service: Internal medicine Consult date: 12/23/17 Requesting Physician: Wilton Rizvi Reason for Consult: Medical management Primary Care Provider: DORIS Pike Family Provider: DORIS Pike Chief Complaint: dm History of Present Illness: This is a 62-year-old male with history of diabetes mellitus, hypertension, metastatic breast cancer to the bone admitted under the neurosurgery service for severe progressive low back pain with radiation to the right lower extremity , status post decompressive semi-laminectomy for lumbar stenosis with decompression of the L4 nerve root. We were consulted for management of chronic conditions. Per patient he has history of breast cancer in remission, diabetes is controlled, last hemoglobin A1c 7.1. He denies any shortness of breath, fever, chest pain, diarrhea or abdominal pain. He however has moderate to severe pain in the surgical site. The right lower extremity pain has resolved. No other complaints. Review of Systems All other pertinent systems were reviewed and are negative. PMF - History History Provided By: Patient - Medical History Medical History: Medical History (Last Reviewed 12/23/17 @ 10:31 by Carlitos Meyer MD) Breast cancer of lower-inner quadrant of right male breast Cervical arthritis Diabetes GERD (gastroesophageal reflux disease) Hypertension Metastatic bone cancer Port-A-Cath in place Sleep apnea with use of continuous positive airway pressure (CPAP) - Surgical History Surgical History: Surgical History (Last Reviewed 12/23/17 @ 10:31 by Carlitos Meyer MD) H/O eye surgery H/O right mastectomy H/O vasectomy History of hernia surgery Hx of tonsillectomy S/P left knee arthroscopy - Family History Family History: Family History (Last Updated 12/23/17 @ 10:31 by Carlitos Meyer MD) Other Family history of breast cancer Family history of diabetes mellitus Family history of hypertension - Tobacco History Second Hand Smoke Exposure: Yes Tobacco Use In Past 30 Days: Yes Smoking Status: Light tobacco smoker Tobacco Type: Cigarettes - Alcohol History How Often Do You Have a Drink Containing Alcohol: Monthly or less - Substance Use History Substance History: No History of Abuse Medications and Allergies Active Medications: Active Medications Al Hydroxide/Mg Hydroxide (Milk Of Magnesia Liq) 30 ml PO Q12H PRN PRN Reason: Mild Constipation Amlodipine Besylate (Norvasc) 5 mg PO DAILY [facility] Last Admin: 12/23/17 08:57 Dose: 5 mg Bisacodyl (Dulcolax Supp) 10 mg RECTAL DAILY PRN PRN Reason: SEVERE CONSITIPATION Chlorhexidine Gluconate (Chlorhexidine 2% Cloth) 3 pack TOPICAL HVAC REFRIGERATION TECHNICIAN [facility] Stop: 12/25/17 07:45 Last Admin: 12/22/17 07:30 Dose: 3 pack Chlorthalidone (Hygroton) 25 mg PO DAILY [facility] Last Admin: 12/23/17 08:53 Dose: 25 mg Clonidine HCl (Catapres) 0.2 mg PO BID [facility] Last Admin: 12/23/17 08:56 Dose: 0.2 mg Dextrose (D50w Vial) 50 ml IV.PUSH UNSCH PRN PRN Reason: PER HYPOGLYCEMIA PROTOCOL Ezetimibe (Zetia) 10 mg PO DAILY [facility] Last Admin: 12/23/17 08:52 Dose: 10 mg Gabapentin (Neurontin) 300 mg PO TID [facility] Last Admin: 12/23/17 08:56 Dose: 300 mg Glucagon (Glucagon Inj) 1 mg OTHER PRN PRN PRN Reason: for Hypoglycemia Protocol Hydralazine HCl (Apresoline) 25 mg PO BID [facility] Last Admin: 12/23/17 08:57 Dose: 25 mg Cefazolin Sodium 1,000 mg/ (Sodium Chloride) 100 mls @ 200 mls/hr IV.SIG HVAC REFRIGERATION TECHNICIAN [facility] Stop: 12/25/17 07:35 Last Infusion: 12/22/17 14:23 Dose: Infused Lactated Ringer's (Lr 1000 Ml Inj) 1,000 mls @ 30 mls/hr IV.SIG .Q24H [facility] Stop: 12/25/17 07:45 Last Admin: 12/23/17 08:47 Dose: Not Given Sodium Chloride (Ns Inj) 500 mls @ 30 mls/hr IV.SIG .Q10H [facility] Stop: 12/25/17 07:45 Lactated Ringer's (Lr 1000 Ml Inj) 1,000 mls @ 0 mls/hr IV.SIG .Q0M [facility] Last Infusion: 12/22/17 09:30 Dose: Infused Potassium Chloride/Sodium Chloride (Ns + Kcl 20 Meq Inj) 1,000 mls @ 100 mls/ hr IV.CONT .Q10H [facility] Last Admin: 12/23/17 08:46 Dose: Not Given Hydromorphone/Sodium Chloride (Dilaudid Kiln Pusher Inj) 6 mg in 30 mls @ 0 mls/hr [employer] UNSCH PRN PRN Reason: per MANAGER [employer] parameters Last Admin: 12/22/17 21:20 Dose: 0 mls/hr Insulin Aspart (Novolog Inj) 65 units SQ TID [facility] Last Admin: 12/23/17 08:48 Dose: Not Given Insulin Detemir (Levemir Inj) 46 unit SQ BID [facility] Last Admin: 12/23/17 08:48 Dose: 46 unit Lactulose (Lactulose Liq) 30 ml PO DAILY PRN PRN Reason: SEVERE CONSITIPATION Metformin HCl (Glucophage) 1,000 mg PO BID [facility] Last Admin: 12/23/17 08:54 Dose: 1,000 mg Metoprolol Tartrate (Lopressor) 25 mg PO HVAC REFRIGERATION TECHNICIAN [facility] Stop: 12/25/17 07:45 Metoprolol Tartrate (Lopressor) 100 mg PO BID [facility] Last Admin: 12/23/17 08:57 Dose: 100 mg Miscellaneous Information (Mis Nursing Information) 1 each OTHER UNSCH PRN PRN Reason: SEE LABEL COMMENTS Stop: 12/23/17 15:36 Naloxone HCl (Narcan Inj) 0.4 mg IV.PUSH PRN PRN PRN Reason: SEE LABEL COMMENTS Oxycodone/Acetaminophen (Percocet 10/325 Mg) 1 tab PO Q4H PRN PRN Reason: PAIN SCALE 1-10 Last Admin: 12/23/17 08:55 Dose: 1 tab Pantoprazole Sodium (Protonix) 40 mg PO DAILY [facility] Last Admin: 12/23/17 08:54 Dose: Not Given Patient Own Medication - ( Dulaglutide [ Trulicity] 1.5 Mg) 1.5 each SQ We [facility] Last Admin: 12/23/17 09:09 Dose: Not Given Pt:Jardiance 10 Mg 0 each PO DAILY [facility] Pt:Letrozole 2.5 Mg 0 each PO DAILY [facility] Pt:Edarbi 80 Mg 0 each PO DAILY [facility] Potassium Chloride (K-Dur) 20 meq PO DAILY [facility] Last Admin: 12/23/17 08:54 Dose: 20 meq Povidone Iodine (Betadine 5% Antisepsis Kit) 1 applicatio EACH NARE HVAC REFRIGERATION TECHNICIAN [facility] Stop: 12/25/17 07:45 Last Admin: 12/22/17 08:15 Dose: 1 applicatio Prednisone (Deltasone) 7.5 mg PO DAILY [facility] Last Admin: 12/23/17 08:53 Dose: 7.5 mg Senna/Docusate Sodium (Stephanie-Colace) 1 tab PO BID [facility] Last Admin: 12/23/17 08:50 Dose: 1 tab Sennosides (Senokot) 17.2 mg PO Q12H PRN PRN Reason: Moderate Constipation Tamsulosin HCl (Flomax) 0.4 mg PO DAILY [facility] Last Admin: 12/23/17 08:51 Dose: Not Given Tizanidine HCl (Zanaflex) 2 mg PO TID PRN PRN Reason: MUSCLE SPASTICITY/Pain Last Admin: 12/23/17 08:57 Dose: 2 mg Allergies Allergy/AdvReac Type Severity Reaction Status Date / Time No Known Allergies Allergy Unverified 12/22/17 07:41 Home Medications Medication Instructions Recorded Confirmed Type amlodipine 5 mg PO DAILY 12/08/17 12/22/17 History azilsartan medoxomil [Edarbi] 80 mg PO DAILY 12/08/17 12/22/17 History chlorthalidone 25 mg PO DAILY 12/08/17 12/22/17 History clonidine HCl 0.2 mg PO BID 12/08/17 12/22/17 History dulaglutide [Trulicity] 1.5 mg SUB-Q DIRECTED 12/08/17 12/22/17 History empagliflozin [Jardiance] 10 mg PO DAILY 12/08/17 12/22/17 History ezetimibe [Zetia] 10 mg PO DAILY 12/08/17 12/22/17 History gabapentin 300 mg PO TID 12/08/17 12/22/17 History hydralazine 25 mg PO BID 12/08/17 12/22/17 History insulin aspart U-100 [Novolog 65 unit SUB-Q TID 12/08/17 12/22/17 History Flexpen U-100 Insulin] insulin detemir U-100 [Levemir 46 unit SUB-Q BID 12/08/17 12/22/17 History FlexTouch U-100 Insuln] insulin glargine [Lantus U-100 65 unit SUB-Q BID 12/08/17 12/22/17 History Insulin] letrozole 2.5 mg PO DAILY 12/08/17 12/22/17 History leuprolide [Lupron Depot] 3.75 mg IM QMONTH 12/08/17 12/22/17 History metformin 1,000 mg PO BID 12/08/17 12/22/17 History metoprolol tartrate 100 mg PO BID 12/08/17 12/22/17 History oxycodone-acetaminophen 1 tab PO Q4-6H PRN 12/08/17 12/22/17 History pantoprazole 40 mg PO DAILY 12/08/17 12/22/17 History potassium chloride 20 meq PO DAILY 12/08/17 12/22/17 History prednisone 7.5 mg PO DAILY 12/08/17 12/22/17 History rosuvastatin [Crestor] 20 mg PO DAILY 12/08/17 12/22/17 History tamsulosin 0.4 mg PO DAILY 12/08/17 12/22/17 History tizanidine 2 mg PO TID PRN 12/08/17 12/22/17 History zoledronic uppj-quwigzvs-ijhnv 4 mg IV [id number] 12/08/17 12/22/17 History [Zometa] Exam Vital signs: Vital Signs 12/22/17 15:44 12/22/17 16:00 12/22/17 16:15 Temperature 98.9 F Pulse Rate 65 64 65 Respiratory Rate 20 20 Blood Pressure 179/82 H 156/64 H 176/65 H Pulse Oximetry 98 98 98 12/22/17 16:30 12/22/17 16:45 12/22/17 17:45 Temperature Pulse Rate 65 65 65 Respiratory Rate 20 20 Blood Pressure 161/55 H 153/59 H 116/70 Pulse Oximetry 98 98 98 12/22/17 18:47 12/22/17 20:03 12/22/17 23:48 Temperature 98.8 F 98.2 F Pulse Rate 65 81 Respiratory Rate 18 18 Blood Pressure 164/76 H 197/81 H Pulse Oximetry 98 95 12/23/17 00:00 12/23/17 01:09 12/23/17 04:00 Temperature 99.4 F 97.7 F Pulse Rate 76 69 Respiratory Rate 18 16 18 Blood Pressure 125/59 L 144/65 H Pulse Oximetry 95 95 12/23/17 05:27 12/23/17 06:04 Temperature Pulse Rate Respiratory Rate 16 18 Blood Pressure Pulse Oximetry Intake & Output 12/22/17 12/23/17 12/23/17 18:59 06:59 18:59 Intake Total 4150 / 4150 Output Total 2099 / 2100 2425 / 2425 Balance 2049 -2425 / -2425 Weight 126.5 kg Intake: IV 1150 / 1150 LR 1000 mL Inj 1,000 ML @ KVO 1000 / 1000 IV.SIG .Q0M [facility] Rx#:[id number] Ancef 2 GM Premix Inj 2 gm In 50 / 50 50 ml @ 0 mls/hr IV.SIG .STK- [facility] Rx#:[id number] Ancef Inj 1,000 MG In NS Inj 100 / 100 100 ML @ 200 mls/hr IV.SIG HVAC REFRIGERATION TECHNICIAN [facility] Rx#:[id number] Anesthesia Amount 3000 / 3000 Output: Estimated Blood Loss 200 / 200 Urine Amount (Catheter) 1900 / 1900 2350 / 2350 Indwelling Urethral Catheter 1900 / 1900 2350 / 2350 Wound Drainage 75 / 75 # 1 Lower Back Mayank 75 / 75 Other: # Voids 1 Weight On Admission 126.5 kg Narrative: Not in distress, well-nourished, looks stated age PERRL, pink conjunctiva without injection, anicteric Nose without bleeding, airway patent, oropharynx clear Supple neck Normal rate and regular rhythm, no murmurs gallops or rubs appreciated. Clear to auscultation and symmetric bilaterally, normal respiratory effort. Normal bowel sounds, soft, non-tender, nondistended, no guarding. Extremities without clubbing, cyanosis, or edema. No rash of generalized distribution. ROSALVA drain is in place with scant sanguinous output. AAO x3, no cranial nerve deficits, moves all 4 extremities, no focal neurologic deficits Results - Labs CBC & Chem 7: 12/22/17 22:29 Labs: Laboratory Results - last 24 hr 12/22/17 12/22/17 12/22/17 11:22 12:07 13:01 Potassium POC Glucose 234 H 270 H 223 H 12/22/17 12/22/17 12/22/17 13:34 14:02 14:30 Potassium 4.0 POC Glucose 236 H 221 H 12/22/17 12/22/17 12/22/17 14:33 15:00 16:08 Potassium POC Glucose 232 H 216 H 226 H 12/22/17 12/22/17 12/22/17 16:29 16:58 17:29 Potassium POC Glucose 222 H 217 H 199 H 12/22/17 12/22/17 12/22/17 18:02 19:48 21:11 Potassium POC Glucose 204 H 176 H 198 H 12/22/17 12/23/17 22:29 08:40 Potassium 3.9 POC Glucose 190 H - Imaging Impressions Lumbar Spine X-Ray 12/22/17 00:00 CONCLUSION: Satisfactory operative appearance Assessment and Plan - Plan This is a 62-year-old male admitted for decompressive laminectomy for lumbar stenosis, we were consulted for management of chronic conditions Lumbar stenosis, status post decompressive laminectomy-further management per primary. Change ketorolac to as needed per patient's request. Diabetes mellitus-allegedly controlled, hemoglobin A1c 7.1 per patient, continue Levemir twice a day per home dose with sliding scale insulin, metformin and other DM Meds. BG's have been 170s-200s. Increase Levemir if needed. Hypertension-continue Norvasc, chlorthalidone, clonidine, hydralazine, azilsartan Dyslipidemia, hypertriglyceridemia-restart rosuvastatin, Zetia DVT prophylaxis: Per primary Thank you very much for this consult, we will follow along with you.
[2017-12-23] MEDS: Ketorolac Inj 30 MG/ML (IVP) Vial IV.PUSH PRN ×2 (12:53→19:01)
[2017-12-23] MEDS ORDERED: TRULICITY 1.5 MG/0.5 ML SQ SCH (13:00)
--- NOTE | 2017-12-23 13:13 | P.PNNS ---
Subjective Interval history: 12/23: reports radicular pain in right leg has improved, c/o of moderate to severe surgical pain, on WAITER/WAITRESS SECOND CLASS, Toradol is being added. denies changes in LE strength. Physical Exam Vital signs: Vital Signs 12/22/17 15:44 12/22/17 16:00 12/22/17 16:15 Temperature 98.9 F Pulse Rate 65 64 65 Respiratory Rate 20 20 Blood Pressure 179/82 H 156/64 H 176/65 H Pulse Oximetry 98 98 98 12/22/17 16:30 12/22/17 16:45 12/22/17 17:45 Temperature Pulse Rate 65 65 65 Respiratory Rate 20 20 Blood Pressure 161/55 H 153/59 H 116/70 Pulse Oximetry 98 98 98 12/22/17 18:47 12/22/17 20:03 12/22/17 23:48 Temperature 98.8 F 98.2 F Pulse Rate 65 81 Respiratory Rate 18 18 Blood Pressure 164/76 H 197/81 H Pulse Oximetry 98 95 12/23/17 00:00 12/23/17 01:09 12/23/17 04:00 Temperature 99.4 F 97.7 F Pulse Rate 76 69 Respiratory Rate 18 16 18 Blood Pressure 125/59 L 144/65 H Pulse Oximetry 95 95 12/23/17 05:27 12/23/17 06:04 12/23/17 08:00 Temperature 98.6 F Pulse Rate 63 Respiratory Rate 16 18 18 Blood Pressure 133/62 Pulse Oximetry 93 L Intake & Output 12/22/17 12/23/17 12/23/17 18:59 06:59 18:59 Intake Total 4150 / 4150 Output Total 2100 / 2100 2425 / 2425 Balance 2050 / 2050 -2425 / -2425 Weight 126.5 kg Intake: IV 1150 / 1150 LR 1000 mL Inj 1,000 ML @ KVO 1000 / 1000 IV.SIG .Q0M [facility] Rx#:[id number] Ancef 2 GM Premix Inj 2 gm In 50 / 50 50 ml @ 0 mls/hr IV.SIG .STK- [facility] Rx#:[id number] Ancef Inj 1,000 MG In NS Inj 100 / 100 100 ML @ 200 mls/hr IV.SIG DICE SPOTTER [facility] Rx#:[id number] Anesthesia Amount 3000 / 3000 Output: Estimated Blood Loss 200 / 200 Urine Amount (Catheter) 1900 / 1900 2350 / 2350 Indwelling Urethral Catheter 1899 / 2349 Wound Drainage 75 / 75 # 1 Lower Back Mayank 75 / 75 Other: # Voids 1 Weight On Admission 126.5 kg Narrative: Awake, alert, NAD. Speech fluent. Morbidly obese. Moves all major muscle groups of LE well, limited due to surgical pain. - Urinary Catheter Management Indwelling Urethral Catheter Cath placed during this visit: yes, but has since been removed by the nurse Reason for continuing: Decision to DC catheter Insertion date: 12/22/17 Insertion time: 09:30 Removal date: 12/23/17 Removal time: 04:00 Assessment and Plan - Plan Impression: status post 1. Bilateral L4-5 decompressive semi-laminectomy for lumbar stenosis 2. Right L4-5 facetectomy, foraminotomy, decompression exiting right L4 nerve root. 3. L4-5 discectomy, interbody fusion,PEEK cage, lamina autograft and demineralized bone matrix 4. Bilateral L4-5 posterior instrumentation with pedicle screw fixation by Dr. Rizvi on 12/22/17 Plan: cont WAITER/WAITRESS SECOND CLASS for pain control PT, start mobilizing with LSO brace cont ROSALVA draining today appreciate medical assistance
[2017-12-23] MEDS: HYDROmorphone PCA Inj 6 MG/30 ML PCA.VIAL PCA PRN ×2 (13:59→19:23)
[2017-12-24] MEDS: Ketorolac Inj 30 MG/ML (IVP) Vial IV.PUSH PRN ×3 (01:27→21:24)
[2017-12-24] MEDS: HYDROmorphone PCA Inj 6 MG/30 ML PCA.VIAL PCA PRN ×2 (05:05→14:03)
[2017-12-24] MEDS: oxyCODONE/Acetaminophen 10/325 Tablet PO PRN ×4 (07:53→20:58)
[2017-12-24] MEDS: Ezetimibe 10 MG Tablet PO SCH (09:21)
[2017-12-24] MEDS: Gabapentin 300 MG Capsule PO SCH ×3 (09:21→18:22)
[2017-12-24] MEDS: Senna/Docusate Sodium 8.6/50 MG Tablet PO SCH ×2 (09:21→21:25)
[2017-12-24] MEDS: predniSONE 5 MG Tablet PO SCH (09:21)
[2017-12-24] MEDS: hydrALAZINE 25 MG Tablet PO SCH ×2 (09:22→21:25)
[2017-12-24] MEDS: Chlorthalidone 50 MG Tablet PO SCH (09:23)
[2017-12-24] MEDS: amLODIPine 5 MG Tablet PO SCH (09:23)
[2017-12-24] MEDS: Insulin Detemir Inj 1,000 UNIT/10 ML Vial SQ SCH ×2 (09:28→22:19)
[2017-12-24] MEDS: Metoprolol Tartrate 100 MG Tablet PO SCH ×2 (09:36→21:27)
[2017-12-24] MEDS ORDERED: Dextrose 50% in Water 50 ML Vial IV.PUSH PRN (10:45)
[2017-12-24] MEDS: Insulin NovoLOG Aspart Correctional Sugar Inj SQ SCH ×2 (12:06→18:22)
--- NOTE | 2017-12-24 13:13 | P.PNIM ---
Subjective Interval history: f/u htn, pain, DM pain is better, BGs in the low side, no SOB, no chest pain, has a chronic cough Physical Exam Vital signs: Vital Signs 12/23/17 15:26 12/23/17 16:00 12/23/17 20:00 Temperature 98.1 F 100.0 F H Pulse Rate 63 62 Respiratory Rate 13 18 16 Blood Pressure 140/63 150/63 H Pulse Oximetry 90 L 90 L 12/24/17 00:00 12/24/17 03:49 12/24/17 04:00 Temperature 98.1 F 98.6 F Pulse Rate 58 L 68 61 Respiratory Rate 21 17 20 Blood Pressure 144/65 H 161/75 H Pulse Oximetry 93 L 94 L 93 L 12/24/17 04:41 12/24/17 06:08 12/24/17 07:23 Temperature 98.3 F Pulse Rate 65 Respiratory Rate 12 18 19 Blood Pressure 133/83 Pulse Oximetry 12/24/17 08:00 12/24/17 08:31 12/24/17 10:06 Temperature 98.3 F Pulse Rate Respiratory Rate 18 12 Blood Pressure Pulse Oximetry Intake & Output 12/23/17 12/24/17 12/24/17 18:59 06:59 18:59 Intake Total 1720 / 1720 1500 / 1500 950 / 950 Output Total 1025 / 1025 1230 / 1230 Balance 695 / 695 270 / 270 950 / 950 Weight 127.1 kg Intake: IV 1000 / 1000 1000 / 1000 950 / 950 NS + KCl 20 mEq Inj 1,000 ML @ 1000 / 1000 1000 / 1000 950 / 950 100 mls/hr IV.CONT .Q10H [facility] Rx #:[id number] Oral 720 / 720 500 / 500 Output: Urine 750 / 750 1200 / 1200 Estimated Blood Loss 200 / 200 Wound Drainage 75 / 75 30 / 30 # 1 Lower Back Mayank 75 / 75 30 / 30 Other: # Voids 2 Date of Last Bowel Movement 12/23/17 12/23/17 # Bowel Movements 1 1 Narrative: Not in distress PERRL, pink conjunctiva without injection Normal rate and regular rhythm, no murmurs gallops or rubs appreciated. Clear to auscultation and symmetric bilaterally, normal respiratory effort. Normal bowel sounds, soft, non-tender Extremities without clubbing, cyanosis, or edema. No rash of generalized distribution. ROSALVA drain is in place with scant sanguinous output. AAO x3, no cranial nerve deficits, moves all 4 extremities, no focal neurologic deficits - Urinary Catheter Management Indwelling Urethral Catheter Cath placed during this visit: yes, but has since been removed by the nurse Reason for continuing: Decision to DC catheter Insertion date: 12/22/17 Insertion time: 09:30 Removal date: 12/23/17 Removal time: 04:00 Results - Labs CBC & Chem 7: 12/22/17 22:29 Laboratory Results - last 24 hr 12/23/17 12/23/17 12/24/17 18:57 20:35 07:20 POC Glucose 160 H 192 H 148 H 12/24/17 11:34 POC Glucose 245 H Assessment and Plan - Plan This is a 62-year-old male admitted for decompressive laminectomy for lumbar stenosis, we were consulted for management of chronic conditions Lumbar stenosis, status post decompressive laminectomy-further management per primary. Change ketorolac to as needed per patient's request, start ibuprofen Diabetes mellitus-allegedly controlled, hemoglobin A1c 7.1 per patient, continue Levemir twice a day per home dose with sliding scale insulin, metformin and other DM Meds. BG's have been low, d/c novolog 65 U with meals, start SSI Hypertension-continue Norvasc, chlorthalidone, clonidine, hydralazine, azilsartan Dyslipidemia, hypertriglyceridemia- cont rosuvastatin, Zetia DVT prophylaxis: Per primary
[2017-12-24] MEDS: Ibuprofen 600 MG Tablet PO PRN (14:02)
--- NOTE | 2017-12-24 14:15 | P.PNNS ---
Subjective Interval history: 12/24: still moderately painful worse with movement. requiring supplementation with Percocet on top of RENTAL CLERK for control which helps. Physical Exam Vital signs: Vital Signs 12/23/17 15:26 12/23/17 16:00 12/23/17 20:00 Temperature 98.1 F 100.0 F H Pulse Rate 63 62 Respiratory Rate 13 18 16 Blood Pressure 140/63 150/63 H Pulse Oximetry 90 L 90 L 12/24/17 00:00 12/24/17 03:49 12/24/17 04:00 Temperature 98.1 F 98.6 F Pulse Rate 58 L 68 61 Respiratory Rate 21 17 20 Blood Pressure 144/65 H 161/75 H Pulse Oximetry 93 L 94 L 93 L 12/24/17 04:41 12/24/17 06:08 12/24/17 07:23 Temperature 98.3 F Pulse Rate 65 Respiratory Rate 12 18 19 Blood Pressure 133/83 Pulse Oximetry 12/24/17 08:00 12/24/17 08:31 12/24/17 10:06 Temperature 98.3 F Pulse Rate Respiratory Rate 18 12 Blood Pressure Pulse Oximetry 12/24/17 12:00 Temperature 98 F Pulse Rate 62 Respiratory Rate 20 Blood Pressure 137/61 Pulse Oximetry 91 L Intake & Output 12/23/17 12/24/17 12/24/17 18:59 06:59 18:59 Intake Total 1720 / 1720 1500 / 1500 950 / 950 Output Total 1025 / 1025 1230 / 1230 Balance 695 / 695 270 / 270 950 / 950 Weight 127.1 kg Intake: IV 1000 / 1000 1000 / 1000 950 / 950 NS + KCl 20 mEq Inj 1,000 ML @ 1000 / 1000 1000 / 1000 950 / 950 100 mls/hr IV.CONT .Q10H [facility] Rx #:[id number] Oral 720 / 720 500 / 500 Output: Urine 750 / 750 1200 / 1200 Estimated Blood Loss 200 / 200 Wound Drainage 75 / 75 30 / 30 # 1 Lower Back Mayank 75 / 75 30 / 30 Other: # Voids 2 Date of Last Bowel Movement 12/23/17 12/23/17 # Bowel Movements 1 1 Narrative: Awake, resting in bed moves grossly lower extremities ROSALVA drain with minimal output movement limited due to surgical pain - Urinary Catheter Management Indwelling Urethral Catheter Cath placed during this visit: yes, but has since been removed by the nurse Reason for continuing: Decision to DC catheter Insertion date: 12/22/17 Insertion time: 09:30 Removal date: 12/23/17 Removal time: 04:00 Assessment and Plan - Plan Impression: status post 1. Bilateral L4-5 decompressive semi-laminectomy for lumbar stenosis 2. Right L4-5 facetectomy, foraminotomy, decompression exiting right L4 nerve root. 3. L4-5 discectomy, interbody fusion,PEEK cage, lamina autograft and demineralized bone matrix 4. Bilateral L4-5 posterior instrumentation with pedicle screw fixation by Dr. Rizvi on 12/22/17 Plan: cont RENTAL CLERK for pain control, plus Percocet prn. Toradol injections prior to mobilization continue PT, encouraged increase mobilization with LSO brace dc ROSALVA drain today, case mgt consult for dc planning to rehab appreciate medical assistance dw nursing in room
[2017-12-25] MEDS: oxyCODONE/Acetaminophen 10/325 Tablet PO PRN ×4 (01:29→16:24)
[2017-12-25] MEDS: Insulin NovoLOG Aspart Correctional Sugar Inj SQ SCH ×4 (01:32→18:22)
[2017-12-25] MEDS: HYDROmorphone PCA Inj 6 MG/30 ML PCA.VIAL PCA PRN (04:41)
[2017-12-25] MEDS: Metoprolol Tartrate 100 MG Tablet PO SCH (08:48)
[2017-12-25] MEDS: Ezetimibe 10 MG Tablet PO SCH (08:48)
[2017-12-25] MEDS: Gabapentin 300 MG Capsule PO SCH ×3 (08:48→18:22)
[2017-12-25] MEDS: Ibuprofen 600 MG Tablet PO PRN (08:49)
[2017-12-25] MEDS: Chlorthalidone 50 MG Tablet PO SCH (08:49)
[2017-12-25] MEDS: predniSONE 5 MG Tablet PO SCH (08:49)
[2017-12-25] MEDS: hydrALAZINE 25 MG Tablet PO SCH (08:49)
[2017-12-25] MEDS: Insulin Detemir Inj 1,000 UNIT/10 ML Vial SQ SCH (08:50)
[2017-12-25] MEDS: Ketorolac Inj 30 MG/ML (IVP) Vial IV.PUSH PRN (08:50)
[2017-12-25] MEDS: amLODIPine 5 MG Tablet PO SCH (08:50)
[2017-12-25] MEDS: Senna/Docusate Sodium 8.6/50 MG Tablet PO SCH (08:50)
--- NOTE | 2017-12-25 12:37 | P.PNNS ---
Subjective Interval history: Pt awake and alert. Sitting up on edge of bed with PT. Complains of incisional pain but much better today. He states the radiculopathy and paresthesias have resolved in the LEs. He is ambulating well with a rolling walker. He is requesting discharge home. Physical Exam Vital signs: Vital Signs 12/24/17 16:00 12/24/17 20:00 12/25/17 00:00 Temperature 97.6 F 97.8 F 98 F Pulse Rate 57 L 60 61 Respiratory Rate 20 20 20 Blood Pressure 158/75 H 163/72 H 177/78 H Pulse Oximetry 98 94 L 95 12/25/17 04:00 12/25/17 06:14 12/25/17 07:15 Temperature 97.8 F 96.6 F L Pulse Rate 84 58 L Respiratory Rate 20 19 16 Blood Pressure 156/70 H 168/77 H Pulse Oximetry 95 94 L 12/25/17 09:23 Temperature Pulse Rate Respiratory Rate 16 Blood Pressure Pulse Oximetry Intake & Output 12/24/17 12/25/17 12/25/17 18:59 06:59 18:59 Intake Total 2355 / 2355 1000 / 1000 Output Total 2049 325 / 325 Balance 2345 / 2345 -1050 / -1050 -325 / -325 Weight 127.1 kg Intake: IV 1250 / 1250 NS + KCl 20 mEq Inj 1,000 ML @ 1250 / 1250 100 mls/hr IV.CONT .Q10H [facility] Rx #:[id number] Oral 1105 / 1105 1000 / 1000 Output: Urine 2049 325 / 325 Wound Drainage # 1 Lower Back Mayank Other: # Voids 4 Date of Last Bowel Movement 12/23/17 12/24/17 12/23/17 # Bowel Movements 0 - Constitutional no acute distress, obese - Routine HEENT Exam Head: Present: normocephalic Eye: Present: PERRL. Absent: conjunctival icterus - Routine Respiratory Exam Present: CTA bilaterally. Absent: respiratory distress - Routine Cardiovascular Exam Present: RRR, S1, S2. Absent: murmur - Routine Abdominal Exam Present: soft, normoactive bowel sounds. Absent: tenderness, distended - Routine Skin Exam Present: intact. Absent: cyanosis, erythema - Routine Neurological Exam Present: alert, oriented X3. Absent: motor deficit (5/5 strength in LEs.) - Routine Psychiatric Exam Present: normal affect, good insight, good judgment. Absent: anxious, agitated - Urinary Catheter Management Indwelling Urethral Catheter Cath placed during this visit: yes, but has since been removed by the nurse Reason for continuing: Decision to DC catheter Insertion date: 12/22/17 Insertion time: 09:30 Removal date: 12/23/17 Removal time: 04:00 Assessment and Plan - Plan Impression: status post 1. Bilateral L4-5 decompressive semi-laminectomy for lumbar stenosis 2. Right L4-5 facetectomy, foraminotomy, decompression exiting right L4 nerve root. 3. L4-5 discectomy, interbody fusion,PEEK cage, lamina autograft and demineralized bone matrix 4. Bilateral L4-5 posterior instrumentation with pedicle screw fixation by Dr. Rizvi on 12/22/17 Plan: Pt requests discharge home with home health and PT. Home PT will not be able to start for several days but pt states he is okay with this as he is up and ambulating with a walker on his own. Instructions given to pt to keep bandage dry for 5 days post op. No pushing, pulling, lifting more than 5 pounds.
--- NOTE | 2017-12-25 13:12 | P.DCO ---
- Physical Therapy Order: Evaluate and treat - Home Health Nursing Order: Medical education, Signs/symptoms of disease process, Wound care and dressing changes, Nursing assessment with vital signs - Certification I have seen patient Devon Khan on 12/25/17. My clinical findings support the need for the requested home health care services because: Limited mobility due to disease progression, Deconditioned with increased weakness I certify that my clinical findings support that this patient is homebound because: Post-op weakness
--- NOTE | 2017-12-25 13:35 | P.PNIM ---
Subjective Interval history: Pain is more manageable, no fever or chills. He thinks that he can go home with home health care. Blood pressure and blood glucose stable. Physical Exam Vital signs: Vital Signs 12/24/17 16:00 12/24/17 20:00 12/25/17 00:00 Temperature 97.6 F 97.8 F 98 F Pulse Rate 57 L 60 61 Respiratory Rate 20 20 20 Blood Pressure 158/75 H 163/72 H 177/78 H Pulse Oximetry 98 94 L 95 12/25/17 04:00 12/25/17 06:14 12/25/17 07:15 Temperature 97.8 F 96.6 F L Pulse Rate 84 58 L Respiratory Rate 20 19 16 Blood Pressure 156/70 H 168/77 H Pulse Oximetry 95 94 L 12/25/17 09:23 Temperature Pulse Rate Respiratory Rate 16 Blood Pressure Pulse Oximetry Intake & Output 12/24/17 12/25/17 12/25/17 18:59 06:59 18:59 Intake Total 2355 / 2355 1000 / 1000 Output Total 2049 325 / 325 Balance 2345 / 2345 -1050 / -1050 -325 / -325 Weight 127.1 kg Intake: IV 1250 / 1250 NS + KCl 20 mEq Inj 1,000 ML @ 1250 / 1250 100 mls/hr IV.CONT .Q10H JAY Rx #:[id number] Oral 1105 / 1105 1000 / 1000 Output: Urine 2049 325 / 325 Wound Drainage # 1 Lower Back Mayank Other: # Voids 4 Date of Last Bowel Movement 12/23/17 12/24/17 12/23/17 # Bowel Movements 0 Narrative: Not in distress PERRL, pink conjunctiva without injection Normal rate and regular rhythm, no murmurs gallops or rubs appreciated. Clear to auscultation and symmetric bilaterally, normal respiratory effort. Normal bowel sounds, soft, non-tender Extremities without clubbing, cyanosis, or edema. No rash of generalized distribution. ROSALVA drain is out AAO x3, no cranial nerve deficits, moves all 4 extremities, no focal neurologic deficits - Urinary Catheter Management Indwelling Urethral Catheter Cath placed during this visit: yes, but has since been removed by the nurse Reason for continuing: Decision to DC catheter Insertion date: 12/22/17 Insertion time: 09:30 Removal date: 12/23/17 Removal time: 04:00 Results - Labs CBC & Chem 7: 12/22/17 22:29 Laboratory Results - last 24 hr 12/24/17 12/24/17 12/25/17 15:54 21:27 01:21 POC Glucose 237 H 218 H 153 H 12/25/17 12/25/17 12/25/17 06:11 07:00 11:58 POC Glucose 89 105 213 H Assessment and Plan - Assessment (1) Low back pain Code(s): M54.5 - Low back pain Status: Acute - Plan This is a 62-year-old male admitted for decompressive laminectomy for lumbar stenosis, we were consulted for management of chronic conditions Lumbar stenosis, status post decompressive laminectomy-further management per primary. Continue ketorolac and ibuprofen. Diabetes mellitus-allegedly controlled, hemoglobin A1c 7.1 per patient, continue Levemir twice a day per home dose with sliding scale insulin, metformin and other DM Meds. BG's have been low, continue to hold off NovoLog. Hypertension-continue Norvasc, chlorthalidone, clonidine, hydralazine, azilsartan Dyslipidemia, hypertriglyceridemia- cont rosuvastatin, Zetia DVT prophylaxis: Per primary Discharge with home HC, discussed with case management.
--- NOTE | 2018-01-01 11:59 | P.DS ---
Date of admission: 12/22/17 06:56 Primary care physician: DORIS Pike Attending physician on discharge: Wilton Rizvi Anticipated date of discharge: 12/25/17 Brief History from admission: 12/22: Patient presented to [facility] to have a bilateral L4-5 decompressive semi-laminectomy for lumbar stenosis. 12/23: reports radicular pain in right leg has improved, c/o of moderate to severe surgical pain, on VIOLIN TUTOR, Toradol is being added. denies changes in LE strength. 12/24: still moderately painful worse with movement. requiring supplementation with Percocet on top of VIOLIN TUTOR for control which helps. 12/25: Pt awake and alert. Sitting up on edge of bed with PT. Complains of incisional pain but much better today. He states the radiculopathy and paresthesias have resolved in the LEs. He is ambulating well with a rolling walker. He is requesting discharge home. Therefore the patient was discharged from [facility] with Home Health for further therapy. DS: Diagnosis - Discharge Diagnosis (1) Low back pain Status: Acute DS: Medications - Discharge Medications Prescriptions: oxycodone-acetaminophen 1 tab PO Q4-6H PRN #30 tab PRN Reason: Pain oxycodone-acetaminophen 1 tab PO Q4-6H PRN #30 cap PRN Reason: Pain DS: Summary Hospital Course: 12/22: Patient presented to [facility] to have a bilateral L4-5 decompressive semi-laminectomy for lumbar stenosis. 12/23: reports radicular pain in right leg has improved, c/o of moderate to severe surgical pain, on VIOLIN TUTOR, Toradol is being added. denies changes in LE strength. 12/24: still moderately painful worse with movement. requiring supplementation with Percocet on top of VIOLIN TUTOR for control which helps. 12/25: Pt awake and alert. Sitting up on edge of bed with PT. Complains of incisional pain but much better today. He states the radiculopathy and paresthesias have resolved in the LEs. He is ambulating well with a rolling walker. He is requesting discharge home. Therefore the patient was discharged from [facility] with Home Health for further therapy. - Time Spent with Patient Total time spent providing and/or coordinating discharge services: - Quality: VTE Deep Vein Thrombosis/Pulmonary Embolism Present on Admission: No Results Procedures completed during hospitalization: 12/22/17: 1. Bilateral L4-5 decompressive semi-laminectomy for lumbar stenosis 2. Right L4-5 facetectomy, foraminotomy, decompression exiting right L4 nerve root. 3. L4-5 discectomy, interbody fusion,PEEK cage, lamina autograft and demineralized bone matrix 4. Bilateral L4-5 posterior instrumentation with pedicle screw fixation - Impressions ITS Impressions Lumbar Spine X-Ray 12/22/17 00:00 CONCLUSION: Satisfactory operative appearance Discharge Plan - Discharge Disposition Patient Disposition: W/Home Health Service - Discharge Condition Condition: Stable - Discharge Order Discharge Orders: Discharge Order (Routine); Ordered 12/25/17 Ordered By: Best Rodriguez - Discharge Details Anticipated Discharge Date: 12/25/17 - Physicians Team Primary Care Provider: Micki Yip Attending Provider: Wilton Rizvi Other Providers: Carlitos Meyer MD - Rxs /Orders / Referrals /Forms Prescriptions: New ibuprofen 600 mg Tablet 600 mg PO Q8H PRN (Reason: pain 1-5) RF: 0 insulin aspart U-100 [Novolog U-100 Insulin aspart] 100 unit/mL Solution 0 unit Sub-Q Q6HR RF: 0 oxycodone-acetaminophen 10-325 mg Tablet 1 tab PO Q4-6H PRN (Reason: Pain) Qty: 30 RF: 0 oxycodone-acetaminophen 10-325 mg Tablet 1 tab PO Q4-6H PRN (Reason: Pain) Qty: 30 Continue amlodipine 5 mg Tablet 5 mg PO DAILY azilsartan medoxomil [Edarbi] 80 mg Tablet 80 mg PO DAILY chlorthalidone 25 mg Tablet 25 mg PO DAILY clonidine HCl 0.2 mg Tablet 0.2 mg PO BID dulaglutide [Trulicity] 1.5 mg/0.5 mL Pen Injector 1.5 mg SUB-Q DIRECTED empagliflozin [Jardiance] 10 mg Tablet 10 mg PO DAILY ezetimibe [Zetia] 10 mg Tablet 10 mg PO DAILY gabapentin 300 mg Capsule 300 mg PO TID hydralazine 25 mg Tablet 25 mg PO BID insulin detemir U-100 [Levemir FlexTouch U-100 Insuln] 100 unit/mL (3 mL) Insulin Pen 46 unit SUB-Q BID letrozole 2.5 mg Tablet 2.5 mg PO DAILY leuprolide [Lupron Depot] 3.75 mg Syringe Kit 3.75 mg IM QMONTH metformin 1,000 mg Tablet 1,000 mg PO BID metoprolol tartrate 100 mg Tablet 100 mg PO BID pantoprazole 40 mg Tablet,Delayed Release (Dr/Ec) 40 mg PO DAILY potassium chloride 20 mEq Tablet Extended Release 20 meq PO DAILY prednisone 5 mg Tablet 7.5 mg PO DAILY rosuvastatin [Crestor] 20 mg Tablet 20 mg PO DAILY tamsulosin 0.4 mg Capsule,Extended Release 24hr 0.4 mg PO DAILY tizanidine 2 mg Tablet 2 mg PO TID PRN (Reason: Pain) zoledronic zueq-fezisayt-prxla [Zometa] 4 mg/100 mL Piggyback 4 mg IV [id number] Discontinued insulin aspart U-100 [Novolog Flexpen U-100 Insulin] 100 unit/mL Insulin Pen 65 unit SUB-Q TID insulin glargine [Lantus U-100 Insulin] 100 unit/mL Solution 65 unit SUB-Q BID Referrals: Micki Yip ARNP [Primary Care Provider] - See Instructions - Discharge Instructions Patient Printed Instructions: Oxycodone/Acetaminophen (By mouth), Laminectomy ( DC), Lumbosacral Orthosis (DC) Additional Instructions: Your Health Problems: Goals to Promote Your Health: * To prevent worsening of your condition * To maintain your health at the optimal level Directions to Meet Your Goals: * Take your medications as prescribed * Follow your dietary instruction * Follow activity as directed * Keep your appointments as scheduled * Take your immunizations and boosters as scheduled * If your symptoms worsen call your PCP * If no PCP go to Urgent Care or Emergency Room Smoking is dangerous to your health. Avoid second hand smoke. You may reach the 24-hour crisis hotline for domestic abuse at .
== END 2017-12-25 20:08 | disposition home health service (06) ==
LOC: HSDI 12-22 06:56 → N05 12-22 18:56
PROVIDERS: ADMIT Neurological Surgery; ATTEND Neurological Surgery